=== PATIENT | female | born 1955 | race Caucasian/White ===

== ENCOUNTER 2020-10-20 14:12 | Outpatient (REF) | payer MEDICARE, SELFPAY | END 2020-10-20 14:13 | disposition home or self-care (01) | LOC: HO.HMGCLDS 14:12 | PROVIDERS: PCP Internal Medicine; Visit Provider Internal Medicine | DX: Z20.828 Contact with and (suspected) exposure to other viral communicable diseases (principal) | CPT/HCPCS: C9803; U0003 ==

== ENCOUNTER 2020-12-03 09:58 | Outpatient (REF) | payer MEDICARE, SELFPAY ==
[2020-12-03 11:32] LABS: Estimated Average Glucose 123 mg/dL; Hemoglobin A1c % 5.9 %
[2020-12-03 11:50] LABS: Alanine Aminotransferase 28 U/L (0-31); Anion Gap 16 (12-20); Aspartate Amino Transferase 18 U/L (5-31); Blood Urea Nitrogen 13 mg/dL (9-16); Calcium 9.3 mg/dL (8.4-10.2); Carbon Dioxide 25 mmol/L (22-29); Chloride 102 mmol/L (96-108); Cholesterol 200 mg/dL; Estimated Glomerular Filt Rate > 60; Glucose Fasting 127 mg/dL (60-99); HDL Cholesterol 39 mg/dL; LDL Cholesterol Calculated 110 mg/dl; Potassium 4.2 mmol/l (3.3-5.1); Sodium 139 mmol/L (135-145); Triglycerides 259 mg/dL
[2020-12-03 12:14] LABS: Vitamin D 25-OH Total 39.1 ng/mL (>30)
== END 2020-12-03 09:59 | disposition home or self-care (01) ==
LOC: HO.HMGCLDS 09:58
PROVIDERS: PCP Internal Medicine; Visit Provider Internal Medicine
DX: I10 Essential (primary) hypertension (principal); E78.5 Hyperlipidemia, unspecified; R73.01 Impaired fasting glucose; M85.80 Other specified disorders of bone density and structure, unspecified site
CPT/HCPCS: 36415; 80048; 80061; 82306; 83036; 84450; 84460

== ENCOUNTER 2020-12-10 07:26 | Day surgery (SDC) | payer MEDICARE, SELFPAY ==
--- NOTE | 2020-12-09 09:43 | HO.ANESPROP2 ---
Documented by User: Lou Zamoraney 12/09/20 09:44 HPI - Anesthesia Eval Consult details Narrative: 65yo F for Colonoscopy PMFSH Past Medical History Medical History Elevated cholesterol HTN (hypertension) Impaired fasting glucose Major depression in full remission Mixed dyslipidemia Osteopenia of left femoral neck Smoker unmotivated to quit Family History Family History Father Cancer of prostate Mother HTN (hypertension) Diabetes mellitus Myocardial infarction CAD (coronary artery disease) Brother No problems noted. Brother No problems noted. Sister ALS (amyotrophic lateral sclerosis) Surgical History Surgical History Hx of colonoscopy Social History Social History Alcohol intake: current Smoking Status: Current every day smoker Use of substances other than those prescribed or required for medical reasons: No Have you been hit, kicked, punched, or otherwise hurt by someone within the past year? If so, by whom?: No Advance Directives: No Advance Directives Information Provided: Yes Recently lost weight without trying: No Meds Allergies Allergy/AdvReac Type Severity Reaction Status Date / Time No Known Allergies Allergy Verified 12/08/20 12:48 Home Medications Medication Instructions Recorded Confirmed Type flu vacc [id number](65yr up)-PF 240 ml IM 12/08/20 12/08/20 History mcg/0.7 mL intramuscular syringe Exam Exam Date and Time: December 09, 2020 0943 Pertinent Lab Results Pertinent Lab Results: Laboratory Tests 12/03/20 10:06 Sodium 139 Potassium 4.2 Chloride 102 Carbon Dioxide 25 BUN 13 Creatinine 0.80 Assessment and Plan Assessment Anesthesia Assessment: Chart Reviewed Documented by User: Miguel Gonsalez MD 12/10/20 08:17 PMFSH Past Medical History Medical History Elevated cholesterol HTN (hypertension) Impaired fasting glucose Major depression in full remission Mixed dyslipidemia Osteopenia of left femoral neck Smoker unmotivated to quit Family History Family History Father Cancer of prostate Mother HTN (hypertension) Diabetes mellitus Myocardial infarction CAD (coronary artery disease) Brother No problems noted. Brother No problems noted. Sister ALS (amyotrophic lateral sclerosis) Surgical History Surgical History Hx of colonoscopy Social History Social History Alcohol intake: current Smoking Status: Current every day smoker Use of substances other than those prescribed or required for medical reasons: No Have you been hit, kicked, punched, or otherwise hurt by someone within the past year? If so, by whom?: No Advance Directives: No Advance Directives Information Provided: Yes Recently lost weight without trying: No Meds Allergies Allergy/AdvReac Type Severity Reaction Status Date / Time No Known Allergies Allergy Verified 12/08/20 12:48 Home Medications Medication Instructions Recorded Confirmed Type flu vacc [id number](65yr up)-PF 240 ml IM 12/08/20 12/08/20 History mcg/0.7 mL intramuscular syringe Exam Airway Mallampati Class: III TM Dist: >3cm Neck ROM: Full Loose/Missing/Broken Teeth: Yes (Upper side rotten teeth, one each both sides) Heart: RRR Lungs: NL, hoarse voice Assessment and Plan Assessment Anesthesia Assessment: Anesthesia Plan Discussed and Chart Reviewed Final Anesthetic Review NPO: Yes ASA Class: III Final Preanesthetic Review: No Changes in Pt Med Stat and Consent Obtained/Reviewed Patient Risk: Intermediate Procedure Risk: Low Anesthetic Plan Anesthetic Plan: MAC: Disposition: Standard PACU
[2020-12-10 07:49] VITALS: BP 175/84; PULSE 99; RESP 18; TEMP 36.1; O2SAT 97
[2020-12-10 07:55] VITALS: BMI 29.0
[2020-12-10] MEDS: Sodium Phosphate,Mono-Dibasic 133 ML ENEMA PR (08:01)
[2020-12-10] MEDS: Lactated Ringers 1,000 ML 100 ML IVCONT (08:01)
--- NOTE | 2020-12-10 08:10 | PC.NURSE ---
liquid yellow after fleets
[2020-12-10 09:18] VITALS: BP 91/46; PULSE 72; RESP 16; TEMP 36.1; O2SAT 97
--- NOTE | 2020-12-10 09:21 | PM.OP ---
Brief Operative Note Date of Service: 12/10/20 Pre-op diagnosis: Screening, History of colon polyps Post-op diagnosis: other (Colon polyps, Diverticulosis) Procedure: Colonoscopy to cecum and TI with snare polypectomy(TC polyp), and biopsy and removal of polyps Surgeon: Alin Maier Anesthesia: MAC Estimated blood loss (mL): 3.0 Pathology: other (A. Ascending colon polyps B. Transverse colon polyps) Condition: stable Disposition: PACU
[2020-12-10 09:33] VITALS: BP 101/49; PULSE 62; RESP 17; TEMP 36.8; O2SAT 98
--- NOTE | 2020-12-10 10:09 | OP_ITS ---
SURGEON: Alin Maier MD INDICATIONS: The patient presents for evaluation of personal history of tubular adenoma of the colon and colorectal cancer screening. Full consent has been obtained from her for this, including risks of bleeding and perforation. PREOPERATIVE DIAGNOSIS: POSTOPERATIVE DIAGNOSIS: PROCEDURE PERFORMED: Colonoscopy to cecum and terminal ileum with snare polypectomy, and biopsy and removal of polyps. ESTIMATED BLOOD LOSS: COMPLICATIONS: ANESTHESIA: Monitored anesthesia care. ASSISTANTS: SPECIMENS: PREOPERATIVE DIAGNOSES: Colorectal cancer screening and personal history of tubular adenoma of the colon. POSTOPERATIVE DIAGNOSES: Colorectal cancer screening and personal history of tubular adenoma of the colon, colon polyps, diverticulosis, and internal hemorrhoids. DESCRIPTION OF PROCEDURE: The patient was placed in the left lateral decubitus position. The digital rectal exam revealed no abnormalities. The Olympus video pediatric colonoscope was entered into the rectum and advanced easily to the cecum. Once in the cecum, I did identify normal-appearing cecal pouch with appendiceal orifice and a normal-appearing ileocecal valve. The terminal ileum was cannulated and appeared normal. The scope was withdrawn back in the colon. The entire cecum and ileocecal valve appeared normal. The scope was then slowly withdrawn assessing all mucosal surfaces carefully. Preparation was excellent. In the ascending colon were 3, approximately 4 or 5 mm polyps, which were all biopsied and completely removed with cold biopsy forceps. In the transverse colon, was a relatively flat, approximately 10 mm polyp, which was snared and recovered by suction. The polypectomy site appeared clean, without any sign of residual polyp nor bleeding. Also, in the transverse colon, were 2 flat approximately 4 mm polyps, which were biopsied and completely removed with cold biopsy forceps. I did not visualize any other polyps, colitis, or angiodysplasia. There was a moderate amount of sigmoid diverticulosis. In the rectum, scope was retroflexed visualizing internal hemorrhoids, but no other pathology. The rectal mucosa appeared normal. The scope was straightened out and withdrawn from the patient. She tolerated the procedure well and was returned to the recovery area in stable condition. IMPRESSION: 1. Colon polyps, status post snare polypectomy, and biopsy removal. 2. Diverticulosis. 3. Internal hemorrhoids. PLAN: The results of the pathology will be checked. I would recommend a repeat colonoscopy in 3 years for further screening and surveillance. She was advised not to use any aspirin and NSAIDs for 1 week. MD MELINDA Velazquez/JOVON / [id number]
--- NOTE | 2020-12-10 10:41 | HO.POSTANES ---
Post Anesthesia Evaluation Post Anesthesia Evaluation Vital Signs: Vital Signs Temp Pulse Resp BP Pulse Ox 12/10/20 09:33 98.2 F 62 17 101/49 L 98 12/10/20 09:18 97.0 F 72 16 91/46 L 97 12/10/20 07:49 97 F 99 18 175/84 H 97 Anesthesia: General (tiva) Mental Status: Awake Pain Control: Satisfactory Nausea/Vomiting: None Hydration: Adequate Anesthesia-Related Issues: No Anes. Related Issues
== END 2020-12-10 10:05 | disposition home or self-care (01) ==
PROVIDERS: PCP Internal Medicine; Visit Provider Internal Medicine
PROC: 0DJD8ZZ Inspection of Lower Intestinal Tract, Via Natural or Artificial Opening Endoscopic (ICD-10-PCS; CPT 45378; principal; 2020-12-10 08:40)
DX: Z12.11 Encounter for screening for malignant neoplasm of colon (principal); Z86.010 Personal history of colon polyps; D12.2 Benign neoplasm of ascending colon; D12.3 Benign neoplasm of transverse colon; K57.30 Diverticulosis of large intestine without perforation or abscess without bleeding; K64.8 Other hemorrhoids; M85.852 Other specified disorders of bone density and structure, left thigh; I10 Essential (primary) hypertension; R73.01 Impaired fasting glucose; F32.5 Major depressive disorder, single episode, in full remission; Z79.899 Other long term (current) drug therapy; F17.210 Nicotine dependence, cigarettes, uncomplicated
CPT/HCPCS: 45385; 45380; 88305

== ENCOUNTER 2021-03-13 09:58 | Outpatient (REF) | payer MEDICARE, SELFPAY ==
[2021-03-13 12:11] LABS: Alanine Aminotransferase 26 U/L (0-31); Anion Gap 15 (12-20); Aspartate Amino Transferase 20 U/L (5-31); Blood Urea Nitrogen 20 mg/dL (9-16); Calcium 9.6 mg/dL (8.4-10.2); Carbon Dioxide 27 mmol/L (22-29); Chloride 103 mmol/L (96-108); Cholesterol 207 mg/dL; Estimated Glomerular Filt Rate > 60; Glucose Fasting 117 mg/dL (60-99); HDL Cholesterol 49 mg/dL; LDL Cholesterol Calculated 106 mg/dl; Sodium 141 mmol/L (135-145); Triglycerides 261 mg/dL
== END 2021-03-13 09:59 | disposition home or self-care (01) ==
LOC: HO.HMGCLDS 09:58
PROVIDERS: PCP Internal Medicine; Visit Provider Internal Medicine
DX: E78.2 Mixed hyperlipidemia (principal); I10 Essential (primary) hypertension; M85.852 Other specified disorders of bone density and structure, left thigh; R73.01 Impaired fasting glucose; Z78.0 Asymptomatic menopausal state
CPT/HCPCS: 36415; 80048; 80061; 82306; 84450; 84460

== ENCOUNTER 2021-09-18 11:12 | Outpatient (REF) | payer MEDICARE, SELFPAY ==
[2021-09-18 14:22] LABS: Alanine Aminotransferase 32 U/L (0-31); Anion Gap 15 (12-20); Aspartate Amino Transferase 22 U/L (5-31); Blood Urea Nitrogen 11 mg/dL (9-16); Calcium 9.4 mg/dL (8.4-10.2); Carbon Dioxide 24 mmol/L (22-29); Chloride 105 mmol/L (96-108); Cholesterol 200 mg/dL; Estimated Glomerular Filt Rate > 60; Glucose Fasting 112 mg/dL (60-99); HDL Cholesterol 40 mg/dL; LDL Cholesterol Calculated 99 mg/dl; Potassium 4.3 mmol/L (3.3-5.1); Sodium 140 mmol/L (135-145); Triglycerides 309 mg/dL
[2021-09-18 14:27] LABS: Estimated Average Glucose 128 mg/dL; Hemoglobin A1c % 6.1 %
== END 2021-09-18 11:13 | disposition home or self-care (01) ==
LOC: HO.HMGCLDS 11:12
PROVIDERS: PCP Internal Medicine; Visit Provider Internal Medicine
DX: E78.2 Mixed hyperlipidemia (principal); I10 Essential (primary) hypertension; R73.01 Impaired fasting glucose
CPT/HCPCS: 36415; 80048; 80061; 83036; 84450; 84460

== ENCOUNTER 2022-01-20 13:45 | Outpatient (REF) | payer MEDICARE, SELFPAY ==
--- NOTE | ~2022-01-20 | XR_ITS ---
EXAMINATION: XR HIP, LEFT CLINICAL INFORMATION: Fall with left hip pain COMPARISON: None TECHNIQUE: Single view pelvis with 2 views of the left hip. FINDINGS: Mild degenerative changes are present in both hips with some superior joint space narrowing, left greater than right. Sepsis acetabular sclerosis is seen. No fractures are detected. XR/XR hip LT w PEL1V IMPRESSION: Mild degenerative changes both hips. No fractures.
--- NOTE | ~2022-01-20 | CT_ITS ---
EXAMINATION: CT CHEST SCREENING CLINICAL INFORMATION: Current smoker. [id number] history. COMPARISON: Previous chest CT most recent July 2020. TECHNIQUE: Multidetector volumetric CT imaging of the chest is performed without contrast using low dose technique. Additional 2D coronal and sagittal reformatted images and axial 3D maximum intensity projection (MIP) images are generated on the CT workstation. This CT examination was performed using dose optimization techniques as appropriate, variously including the following: *Automated exposure control *Adjustment of mA and/or kV according to patient size (this includes techniques or standardized protocols for targeted exams where dose is matched to indication/reason for exam; i.e. extremities or head) *Use of iterative reconstruction technique DLP: 49 mGy-cm FINDINGS: LUNGS: There is mild paraseptal emphysema. There is a new 6 mm ground-glass attenuation left lower lobe nodule axial image 315 series 5. Pulmonary nodules are otherwise stable. Largest pulmonary nodule is a 5 mm ground-glass attenuation right upper lobe nodule axial image 76 series 5. No endobronchial or endotracheal lesion is seen. MEDIASTINUM: The heart does not appear enlarged. There is mild coronary artery calcification. There is a replaced right subclavian artery. There are no enlarged hilar or mediastinal lymph nodes. There is no pericardial effusion. PLEURA: There is no pleural effusion. No pleural mass or thickening. AXILLA: No lymphadenopathy. UPPER ABDOMEN: The liver is low in attenuation suggestive of fatty infiltration. OSSEOUS STRUCTURES: Unremarkable. CT/CT lung screening IMPRESSION: Emphysema. New 6 mm ground-glass attenuation left lower lobe nodule. Pulmonary nodules are otherwise stable. ASSESSMENT: Lung-RADS category 3: Probably Benign. RECOMMENDATION: Six-month low-dose chest CT followup recommended.
== END 2022-01-20 13:46 | disposition home or self-care (01) ==
LOC: HO.CT 13:45
PROVIDERS: Absent Provider Physician Assistant; PCP Internal Medicine; Visit Provider Physician Assistant Medical
DX: Z12.2 Encounter for screening for malignant neoplasm of respiratory organs (principal); F17.210 Nicotine dependence, cigarettes, uncomplicated; W19.XXXA Unspecified fall, initial encounter
CPT/HCPCS: 71271; 73502

== ENCOUNTER 2022-02-18 09:50 | Outpatient (REF) | payer MEDICARE, SELFPAY ==
[2022-02-18 12:13] LABS: Creatinine Urine 491.21 mg/dL; Microalbum/Creatinine Ratio Ur 11.6 ug/mg cr
[2022-02-18 12:30] LABS: Alanine Aminotransferase 23 U/L (0-31); Anion Gap 14 (12-20); Aspartate Amino Transferase 20 U/L (5-31); Blood Urea Nitrogen 21 mg/dL (9-16); Calcium 9.6 mg/dL (8.4-10.2); Carbon Dioxide 27 mmol/L (22-29); Chloride 104 mmol/L (96-108); Cholesterol 193 mg/dL; Estimated Glomerular Filt Rate > 60; Glucose Fasting 128 mg/dL (60-99); HDL Cholesterol 48 mg/dL; LDL Cholesterol Calculated 97 mg/dl; Potassium 3.8 mmol/L (3.3-5.1); Sodium 141 mmol/L (135-145); Triglycerides 242 mg/dL
[2022-02-18 12:32] LABS: Estimated Average Glucose 134 mg/dL; Hemoglobin A1c % 6.3 %
== END 2022-02-18 09:51 | disposition home or self-care (01) ==
LOC: HO.HMGCLDS 09:50
PROVIDERS: PCP Internal Medicine; Visit Provider Internal Medicine
DX: E78.2 Mixed hyperlipidemia (principal); I10 Essential (primary) hypertension; M85.852 Other specified disorders of bone density and structure, left thigh; R73.01 Impaired fasting glucose; Z78.0 Asymptomatic menopausal state
CPT/HCPCS: 36415; 80048; 80061; 82043; 82306; 83036; 84450; 84460

== ENCOUNTER 2022-04-09 13:00 | Outpatient (RCR) | payer MEDICARE, SELFPAY ==
[2022-02-19 13:03] VITALS: BP 158/90
--- NOTE | 2022-02-19 14:48 | MHC.PT.EP ---
[facility] [place] Office [place] Office [place] Office [address] Zack Mao [address] [phone] F: [phone] F: [phone] F: [phone] F: [phone] Physical Therapy Plan of Care Date of Evaluation: Date of Surgery: Diagnosis: fall L hip pain. Assessment: Patient is a 66-year-old female referred to PT for L hip/ thigh pain s/p fall in her home who presents with L hip and knee dysfunction resulting in decreased tolerance for performing sit to stand transfers, rolling in bed on L hip, negotiating stairs reciprocally, standing and walking secondary to decreased L > R hip strength, decreased L knee strength, TTP of L ant thigh and lateral L hip, gait abnormality, increased LE tissue tension and pain. Pt is deemed an appropriate candidate to receive skilled PT in order to address her physical limitations to improve her functional ability. Frequency and Duration: The patient will be seen 2 x / wk x 4 wks. Short Term Goals: Initiate HEP improve baseline pain from 5/10 to < 3/10 with activity. [employer] Goals: I with HEP. Negotiates 1fl of stairs with reciprocal fashion w/o compensation. Pt will be able to walk 2 blocks with no difficulty; initial: quite a bit of difficulty. Improve L knee extension MMT to > 4+/5; initial 4/5. Treatment Plan: Modalities to reduce pain, spasms and effusion. Manual therapy to restore motion and function. Therapeutic exercise to improve strength and flexibility. Neuromuscular re-education for posture and balance. Therapeutic activities to return to functional activities of daily living. Electronically signed by: Krzysztof Bass PT Please sign and return to therapist. Thank you for your referral.
--- NOTE | 2022-04-09 13:36 | MHC.PT.DC ---
[facility] [place] Office [place] Office [place] Office [address] [phone] F: [phone] F: [phone] F: [phone] F: [phone] Physical Therapy Discharge Report Diagnosis: fall L hip pain. Date of Surgery: Date of Evaluation: 02/19/22 Date of Discharge: 04/09/22 Treatments to Date: 10 Cancellations to Date: No Shows to Date: Discharge Status: Achieved Goals Improved Function Independent with HEP Discharge Summary: Sarah has been an active participant in her therapy in and out of the clinic; she has met her therapeutic goals, is I with her home program and is in agreement with DC at this time. SPADI outcome measure significantly improved from to . Electronically signed by: Krzysztof Bass PT. Please sign and return to therapist. Thank you for your referral.
== END 2022-04-09 13:37 | disposition home or self-care (01) ==
LOC: HO.PTCHIC 13:00
PROVIDERS: PCP Internal Medicine; Visit Provider Internal Medicine
DX: M25.552 Pain in left hip (principal); W19.XXXD Unspecified fall, subsequent encounter
CPT/HCPCS: 97110; 97140; 97161

== ENCOUNTER 2022-08-24 15:05 | Outpatient (REF) | payer MEDICARE, SELFPAY ==
--- NOTE | ~2022-08-24 | CT_ITS ---
EXAMINATION: CT CHEST SCREENING CLINICAL INFORMATION: Current smoker. 50 pack year history. COMPARISON: Previous chest CT most recent January 2022 TECHNIQUE: Multidetector volumetric CT imaging of the chest is performed without contrast using low dose technique. Additional 2D coronal and sagittal reformatted images and axial 3D maximum intensity projection (MIP) images are generated on the CT workstation. This CT examination was performed using dose optimization techniques as appropriate, variously including the following: *Automated exposure control *Adjustment of mA and/or kV according to patient size (this includes techniques or standardized protocols for targeted exams where dose is matched to indication/reason for exam; i.e. extremities or head) *Use of iterative reconstruction technique DLP: 46 mGy-cm FINDINGS: LUNGS: There is evidence of emphysema. Pulmonary nodules are stable. Largest right pulmonary nodule is 5 mm semisolid right upper lobe nodule axial 7 series 5. Largest left pulmonary nodule is a 6 mm groundglass attenuation left lower lobe nodule axial image 301 series 5. No new pulmonary nodule. No endobronchial or endotracheal lesion MEDIASTINUM: There is a replaced right subclavian artery. There is mild atherosclerotic disease. Mediastinum is otherwise normal. CORONARY ARTERY CALCIFICATION: Mild PLEURA: There is no pleural effusion. No pleural mass or thickening. AXILLA: No lymphadenopathy. UPPER ABDOMEN: The liver is low in attenuation suggestive of fatty infiltration. OSSEOUS STRUCTURES: Unremarkable. CT/CT lung screen follow up IMPRESSION: Stable pulmonary nodules from most recent exam January 2022. Emphysema. ASSESSMENT: Lung-RADS category 2: Benign RECOMMENDATION: Annual low-dose chest CT follow-up recommended.
== END 2022-08-24 15:06 | disposition home or self-care (01) ==
LOC: HO.CT 15:05
PROVIDERS: PCP Internal Medicine; Visit Provider Physician Assistant Medical
DX: Z12.2 Encounter for screening for malignant neoplasm of respiratory organs (principal); Z87.891 Personal history of nicotine dependence
CPT/HCPCS: 71250

== ENCOUNTER → 2022-09-03 13:41 | Outpatient (BNVA) | payer MEDICARE, SELFPAY | PROVIDERS: PCP Internal Medicine; Visit Provider Surgery | DX: R91.8 Other nonspecific abnormal finding of lung field (principal); F17.210 Nicotine dependence, cigarettes, uncomplicated; Z71.6 Tobacco abuse counseling | CPT/HCPCS: 99202 ==

== ENCOUNTER 2022-10-02 10:08 | Outpatient (REF) | payer MEDICARE, SELFPAY ==
--- NOTE | ~2022-10-02 | MM_ITS ---
EXAMINATION: MM SCREENING DIGITAL BREAST TOMOSYNTHESIS, BILATERAL CLINICAL INFORMATION: Screening. Asymptomatic. COMPARISON: Mammography: 08/04/2020, 12/06/2018, 03/16/2016, 03/03/2016 TECHNIQUE: Digital breast tomosynthesis is performed in both the craniocaudal and mediolateral oblique views along with computer-aided detection (CAD). Synthesized 2D images are generated from the tomosynthesis. FINDINGS: The breasts are heterogeneously dense, which may obscure small masses (ACR BI-RADS breast composition Category c). There is a nodular parenchymal pattern similar to prior studies. Incidental coarsening calcifications anterior outer right breast. There are no significant masses, abnormal calcifications, or other abnormalities. The axilla are unremarkable. The skin contours are smooth. No significant changes. MM/MM tomosynthesis screening BI IMPRESSION: No significant changes from prior exams. ASSESSMENT: BI-RADS 2: Benign RECOMMENDATION: Routine annual mammography screening. This patient's information was entered into a reminder system with a target due date for their next mammogram.
== END 2022-10-02 10:09 | disposition home or self-care (01) ==
LOC: HO.MAMMO 10:08
PROVIDERS: Visit Provider Internal Medicine
DX: Z12.31 Encounter for screening mammogram for malignant neoplasm of breast (principal)
CPT/HCPCS: 77063; 77067

== ENCOUNTER 2022-11-29 12:29 | Outpatient (AMB) | payer MEDICARE, SELFPAY ==
--- NOTE | 2022-11-29 12:47 | MHC.PC.OV ---
Vital Signs 11/29/22 12:49 11/29/22 13:36 Height 5 ft 4 in Weight 169 lb BMI 29.0 BP 160/72 H 145/60 H Blood Pressure Location Rt brachial Rt brachial Position Sitting Sitting Pulse 75 Pulse Source Pulse Oximeter Pulse Oximetry (%) 96 Oxygen Delivery Method Room Air Comment did not take lisinopril, ran out of medicine Intake Visit Reasons: Annual PE Intake Note: Pt is here today for her Physcial Exam Allergies No Known Allergies Allergy (Verified 06/19/24 12:51) Medication List - Last Reconciled 11/29/22 by Roxy Clark MD flu vacc [id number](65yr up)-PF mL IM fluoxetine 20 mg PO DAILY hydrochlorothiazide 25 mg PO DAILY lisinopril 10 mg PO DAILY simvastatin 40 mg PO BEDTIME trazodone 50 mg PO BEDTIME PRN Tobacco use date assessed: 11/29/22 Fall risk assessment: 1 Fall in past year Last assessed Fall Risk: 11/29/22 HPI Annual PE HPI Details 68-year-old lady here today for physical exam. She has hypertension, currently on hydrochlorothiazide 25 mg daily and lisinopril 10 mg daily, blood pressure today was mildly elevated. She has hyperlipidemia current taking simvastatin 40 mg at bedtime Up-to-date with her breast cancer screening, last mammogram done 09/2022. Up-to-date with her screening colonoscopy done [place] [address] Maier, with removal of 2 tubular adenoma polyps, repeat colonoscopy due again in 2024 Continues to smoke cigarettes, with no desire to quit at present time. Participates in the lung cancer screening program at [facility] Complains of a mass on her right lower cheek, which seems to be increasing in size. Denies any pain over site, no problems with chewing or swallowing. FORMERLY [facility], [facility] Medical History (Updated 06/19/24 @ 13:03 by Roxy Clark MD) Warthin's tumor Tubular adenoma of colon (~2009) Personal history of nicotine dependence Hip pain Impaired fasting glucose Major depression in full remission Osteopenia of left femoral neck (~2007) Mixed dyslipidemia HTN (hypertension) Surgical History History of left breast biopsy History of colonoscopy Family History Father Cancer of prostate Mother HTN (hypertension) Diabetes mellitus Myocardial infarction CAD (coronary artery disease) Brother No problems noted. Brother No problems noted. Sister ALS (amyotrophic lateral sclerosis) Other Mental health disorder Social History Housing: Apartment Alcohol intake: current Patient Tobacco Use Status: Current everyday Tobacco user Cigarettes Per Day: 10 Years Smoked: 50 years e-Cigarette/Vaping Use: Never Used Current occupational status: retired Cognitive needs: No Hearing needs: No Vision needs: Yes Questionnaire PHQ-9 Over the last 2 weeks, how often have you been bothered by any of the following problems? 1. Little interest or pleasure in doing things: not at all 2. Feeling down, depressed, or hopeless: not at all 3. Trouble falling or staying asleep, or sleeping too much: more than half the days 4. Feeling tired or having little energy: several days 5. Poor appetite or overeating: several days 6. Feeling bad about yourself - or that you are a failure or have let yourself or your family down: not at all 7. Trouble concentrating on things, such as reading the newspaper or watching television: not at all 8. Moving or speaking so slowly that other people could have noticed. Or the opposite - being so fidgety or restless that you have been moving around a lot more than usual: not at all 9. Thoughts that you would be better off or of hurting yourself in some way: not at all Total score: 4 Depression Screening Interpretation: Negative 12439 - PHQ-9 Billing: Yes Source: Developed by Drs. Alin Arellano, Yuko Matos, Live Carrion and colleagues, with an educational felicia from [employer]. Thrive Questionnaire Date Thrive assessed: 11/29/22 I am a: Patient What is your living situation today?: I have a steady place to live Within the past 12 months, did the food you bought not last and you didn't have the money to get more?: Never true Within the past 12 months, did you worry whether your food would run out before you got money to buy more?: Never true Do you have trouble paying for medicines?: No Do you have trouble getting transportation to medical appointments?: No Do you have trouble paying your heating and electricity bill?: No Do you have trouble taking care of your child, family member or friend?: No Do you have trouble with day-to-day activities such as bathing, preparing meals, shopping, managing finances, etc.?: No Are you currently unemployed and looking for a job?: No Are you interested in more education?: No AUDIT C Alcohol Use Questionnaire (AUDIT-C) 1. How often do you have a drink containing alcohol?: 4 or more times a week 2. How many drinks containing alcohol do you have on a typical day when you are drinking?: 3 or 4 3. How often do you have six or more drinks on one occasion?: Less than monthly Total Score: 6 BRITTANI-7 AMB Questionnaire BRITTANI-7 Date BRITTANI - 7 assessed: 11/29/22 Feeling nervous, anxious, or on edge: 0 = Not at all Not being able to stop or control worryin = Not at all Worrying too much about different things: 0 = Not at all Trouble relaxin = Not at all Being so restless that it is hard to sit still: 0 = Not at all Becoming easily annoyed or irritable: 0 = Not at all Feeling afraid as if something awful might happen: 0 = Not at all Total BRITTANI-7 score (0-4 normal; 5-9 mild; 10-14 moderate; 15-21 severe): 0 Source: Developed by Drs. Alin Arellano, Yuko Matos, Live Carrion and colleagues, with an educational felicia from [employer]. BRITTANI-7 Assessment Billing BRITTANI-7 Assessment Tool: BRITTANI-7 Assessment 35409 Review of Systems Const Denies chills, Denies difficulty sleeping, Denies fever(s) and Denies malaise Eyes Reports blurry vision ENT Reports no additional complaints Card Denies chest pain, Denies dyspnea and Denies dyspnea on exertion Resp Denies cough, Denies dyspnea and Denies dyspnea on exertion GI Denies hematochezia and Denies change in bowel habits Denies hematuria Musc Denies back pain and Denies limited range of motion Skin/Breast Denies breast pain, Denies breast mass and Denies rash Neuro Denies focal weakness and Denies convulsions Psych Denies depression and Denies mood swings Endo Reports no additional complaints Garth/Lymph Denies easy bleeding and Denies easy bruising Aller/Immun Reports no additional complaints Physical exam (Primary Care) Vital Signs: Last Vital Signs Pulse 75 11/29/22 12:49 BP 145/60 H 11/29/22 13:36 Pulse Ox 96 11/29/22 12:49 Oxygen Delivery Method Room Air 11/29/22 12:49 BMI result Body Mass Index 29.0 Tobacco/Smoking Status: Tobacco use Status Tobacco use date assessed 11/29/22 11/29/22 12:54 Patient Tobacco Use Status Current everyday Tobacco 11/29/22 12:54 e-Cigarette/Vaping Use Never Used 11/29/22 12:54 Are you ready to quit: No PHQ-9: PHQ-9 Score PHQ-9: Total score 4 11/29/22 13:42 Depression Screening Interpretation: Negative Thrive Assessment: Date of Thrive Assessment Date Thrive assessed 11/29/22 11/29/22 12:59 Const Other: Alert oriented x3, no acute distress noted, ambulatory with normal gait Orientation/consciousness: patient oriented x3 HENMT Other: Irregularly shaped mass on right lower cheek, nontender to palpation, no erythema overlying said area Mouth: Normal oral and palatal mucosa present and moist mucous membranes Eyes General: appearance normal, both eyes and all related structures Neck Other: bilateral submandibular lymphadenopathy, nontender , supple Neck: Yes full ROM Thyroid: Thyroid normal Resp Auscultation: clear to auscultation bilaterally Cardio Other: S1 And S2 present regular rate and rhythm GI Palpation (GI): Soft to palpation, nontender, no guarding and no masses Auscultation: normal bowel sounds General: Yes no CVA tenderness Back/Spine/Pelvis Back: no CVA tenderness and No back tenderness Skin General skin exam: no rashes or lesions noted Neuro General: patient oriented x3, gait normal, tone normal, moves all extremities, Normal light touch and pain sensation, no focal motor deficits and CN's II-XI intact bilaterally Extrem General: Yes full ROM, Yes no joint enlargement, Yes no pedal edema, Yes no calf tenderness and Yes normal gait Psych Appearance: grossly normal and well kempt Mental Status: mental status grossly normal Speech and movement: Normal speech and movement present Affect: normal affect Attitude: cooperative Thought process: Normal thought process present Thought content: Normal thought content present Immunizations pneumoc 20-anusha conj-dip cr(PF) 0.5 mL IM syringe Performing Provider: Roxy Clark MD Performing Location: [facility] Administered by: Snehal Corrigan CMA on 11/29/22 13:41 Dose Route Admin Location Dispensed Lot Number Expiration Date [employer] 0.5 mL IM Left Deltoid 0.5 mL [id number] 11/29/22 [employer] VIS Given Date VIS Provided VIS Publication Date 11/29/22 Single Vaccine 21 Eligibility Eligibility Date Funding Source Not [facility] Eligible 11/29/22 Private Assessment and Plan Assessment & Plan (1) Annual visit for general adult medical examination with abnormal findings: Code(s): Z00.01 - Encounter for general adult medical examination with abnormal findings Plan: Will check appropriate labs. Continued regular dental visit every 6 months and regular eye exams, at least every 2 years. Take adequate calcium in diet and vitamin-D 3 at 2000 IU per cap once a day, in addition to weight-bearing exercises to help maintain good muscle tone and weight control. Instructed to do self-breast exam, and continue with yearly mammogram. Ordered a bone density scan to check for osteoporosis. She is up-to-date with her colon cancer screening, She is up-to-date with all her vaccinations including RSV, shingles, pneumonia vaccine (2) Localized swelling, mass or lump of neck: Code(s): R22.1 - Localized swelling, mass and lump, neck Plan: Ordered ultrasound of soft tissue head and neck (3) Osteopenia of left femoral neck: Onset Date: ~2007 Comment: (Bone Dexa Femur T-Score: -1.1 on 02/02/08 & -1.3 on 12/06/18) Code(s): M85.852 - Other specified disorders of bone density and structure, left thigh Plan: Will repeat another bone density scan, in the meantime continue regular weight-bearing exercise, take adequate calcium from dietary sources and take vitamin-D 3 supplements at least 2000 units daily. (4) Personal history of nicotine dependence: Comment: (current smoker, 50pyh - 1ppd, in LDCT screening program) Code(s): Z87.891 - Personal history of nicotine dependence Plan: Patient strongly advised to stop smoking, as smoking damages blood vessels, degenerative of joints and spine, damage to lungs and heart., predisposes to developing certain cancers like lung, breast, bladder, colon. Recommended to try decreasing cigarette use by 1-2 cigarettes a day. Advised to monitor what triggers are for smoking so that this can be discussed on the next office visit. We can discuss different options to quit smoking when ready. She is currently getting annual low-dose CT cancer screening. (5) Impaired fasting glucose: Code(s): R73.01 - Impaired fasting glucose Plan: Fasting blood sugar ordered, Your previous fasting blood sugars were elevated above 100 mg/dL. Impaired glucose metabolism increases the risk for developing diabetes mellitus type 2, as well as heart attack and stroke later on. Lifestyle changes that promotes weight loss, healthy eating habits, and regular exercise are important, and can prevent the progression to diabetes (6) Mixed dyslipidemia: Code(s): E78.2 - Mixed hyperlipidemia Plan: Continue with simvastatin 40 mg at night, in addition to adhering to healthy eating habits and getting regular exercise. (7) HTN (hypertension): Code(s): I10 - Essential (primary) hypertension Qualifiers: Hypertension type: essential hypertension Qualified Code(s): I10 - Essential (primary) hypertension Plan: Systolic blood pressure mildly elevated on today's visit. Patient currently asymptomatic. Continue with hydrochlorothiazide and lisinopril, dose increased to 10 mg daily (8) Multiple pulmonary nodules: Code(s): R91.8 - Other nonspecific abnormal finding of lung field Plan: Has been evaluated by Dr. Barnes in the past, who recommended getting yearly low-dose CT scan for lung cancer screening. Currently up-to-date Orders: Orders Complete Blood Count Auto Diff 11/29/22 R91.8 - Other nonspecific abnormal finding of lung field, R22.1 - Localized swelling, mass and lump, neck US soft tiss head and/or neck 11/29/22 R22.1 - Localized swelling, mass and lump, neck XR DEXA axial skeleton 11/29/22 M85.852 - Other specified disorders of bone density and structure, left thigh Pneumococcal 20 Immunization 11/29/22 Z23 - Encounter for immunization Medications: Refilled hydrochlorothiazide 25 mg PO DAILY 90 tabs 3RF fluoxetine 20 mg PO DAILY 90 caps 2RF lisinopril 10 mg PO DAILY 90 tabs 2RF I10 - Essential (primary) hypertension simvastatin 40 mg PO BEDTIME 90 tabs 1RF trazodone 50 mg PO BEDTIME PRN 30 tabs 0RF sleep Coding Level of Care Code Est Pt Prev Care >65y(77750) Diagnoses Annual visit for general adult medical examination with abnormal findings Z00.01 Localized swelling, mass or lump of neck R22.1 Osteopenia of left femoral neck M85.852 Personal history of nicotine dependence Z87.891 Impaired fasting glucose R73.01 Mixed dyslipidemia E78.2 Essential hypertension I10 Hypertension type: essential hypertension Multiple pulmonary nodules R91.8 Additional Codes BRITTANI-7 Assessment Billing - BRITTANI-7 Assessment Tool: BRITTANI-7 Assessment 21439 ([id number])
[2022-11-29 12:49] VITALS: BP 160/72; PULSE 75; O2SAT 96; BMI 29.0
[2022-11-29 13:36] VITALS: BP 145/60
== END 2022-11-29 13:46 | disposition home or self-care (01) ==
LOC: HO.HMGC 12:29
PROVIDERS: PCP Internal Medicine; Visit Provider Internal Medicine
DX: Z00.01 Encounter for general adult medical examination with abnormal findings (principal); R22.1 Localized swelling, mass and lump, neck; M85.852 Other specified disorders of bone density and structure, left thigh; Z87.891 Personal history of nicotine dependence; R73.01 Impaired fasting glucose; E78.2 Mixed hyperlipidemia; I10 Essential (primary) hypertension; R91.8 Other nonspecific abnormal finding of lung field
CPT/HCPCS: 99499

== ENCOUNTER 2023-06-21 10:07 | Outpatient (REF) | payer MEDICARE, SELFPAY ==
[2023-06-21 13:33] LABS: MANUAL DIFF FLAG NO
[2023-06-21 13:46] LABS: Basophils Absolute Auto 0.1 X10*3/uL (0.0-0.2); Basophils Percent Auto 0.5 % (0-2); Eosinophils Absolute Auto 0.2 X10*3/uL (0.0-0.4); Eosinophils Percent Auto 2.5 % (0-4); Hematocrit 44.7 % (37.0-47.0); Hemoglobin 14.3 g/dl (12.0-16.0); Imm Gran Abs Auto 0.03 X10*3/uL (0.00-0.03); Imm Gran Pct Auto 0.3 % (0.0-0.4); Lymphocytes Absolute Auto 3.4 X10*3/uL (1.2-4.9); Lymphocytes Percent Auto 36.7 % (20-40); Mean Corpuscular Hemoglobin 29.6 pg (27.0-33.0); Mean Corpuscular Volume 92.5 fL (80.0-98.0); Mean Platelet Volume 10.7 fL (9.4-12.3); Monocytes Absolute Auto 0.7 X10*3/uL (0.1-1.2); Monocytes Percent Auto 7.7 % (2-11); Neutrophils Absolute Auto 4.9 x10*3/uL (2.0-8.3); Neutrophils Percent Auto 52.3 % (45-73); Platelet Count 310 X10*3/uL (160-400); Red Blood Count 4.83 X10*6/uL (4.20-5.50); Red Cell Distribution Width 13.8 % (11.0-16.0); White Blood Count 9.4 X10*3/uL (4.8-10.8)
[2023-06-21 13:55] LABS: Estimated Average Glucose 123 mg/dL; Hemoglobin A1c % 5.9 %
[2023-06-21 14:15] LABS: Alanine Aminotransferase 30 U/L (0-31); Anion Gap 15 (12-20); Aspartate Amino Transferase 22 U/L (5-31); Blood Urea Nitrogen 19 mg/dL (9-16); Calcium 9.2 mg/dL (8.4-10.2); Carbon Dioxide 21 mmol/L (22-29); Chloride 108 mmol/L (96-108); Cholesterol 227 mg/dL; Estimated Glomerular Filt Rate > 60; Glucose Fasting 111 mg/dL (60-99); HDL Cholesterol 42 mg/dL; LDL Cholesterol Calculated 126 mg/dl; Potassium 4.3 mmol/L (3.3-5.1); Sodium 140 mmol/L (135-145); Triglycerides 299 mg/dL
[2023-06-21 14:32] LABS: Vitamin D 25-OH Total 80.2 ng/mL (>30)
== END 2023-06-21 10:08 | disposition home or self-care (01) ==
LOC: HO.HMGCLDS 10:07
PROVIDERS: PCP Internal Medicine; Visit Provider Internal Medicine
DX: R91.8 Other nonspecific abnormal finding of lung field (principal); R22.1 Localized swelling, mass and lump, neck; I10 Essential (primary) hypertension; E78.2 Mixed hyperlipidemia; M85.852 Other specified disorders of bone density and structure, left thigh; N95.9 Unspecified menopausal and perimenopausal disorder; R73.01 Impaired fasting glucose
CPT/HCPCS: 36415; 80048; 80061; 82306; 83036; 84450; 84460; 85025

== ENCOUNTER 2023-06-23 12:52 | Outpatient (AMB) | payer MEDICARE, SELFPAY ==
--- NOTE | 2023-06-23 13:09 | MHC.PC.OV ---
Vital Signs 06/23/23 13:10 Height 5 ft 4 in Weight 166 lb BMI 28.5 BP 134/64 Blood Pressure Location Rt brachial Position Sitting Pulse 75 Pulse Source Pulse Oximeter Pulse Oximetry (%) 96 Oxygen Delivery Method Room Air Intake Visit Reasons: 6 Month Follow up Intake Note: Pt is here today for her 6mo. f/u Allergies No Known Allergies Allergy (Verified 06/23/23 13:32) Medication List - Last Reconciled 06/23/23 by Roxy Clark MD fluoxetine 20 mg PO DAILY hydrochlorothiazide 25 mg PO DAILY lisinopril 10 mg PO DAILY simvastatin 40 mg PO BEDTIME trazodone 50 mg PO BEDTIME PRN Tobacco use date assessed: 06/23/23 Fall risk assessment: No Falls in past year Last assessed Fall Risk: 06/23/23 Dental Screening Dental Screen Date: 06/23/23 Did you have a dental visit in the last 12 months?: Yes Did you have a dental problem in the last 6 months where you did not have access to dental care?: No Was dental information given to patient?: Patient has dentist HPI 6 Month Follow up HPI Details 67-year-old lady here today for follow-up. 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 Parks Had recent fasting labs done which showed normal hemoglobin A1c, but LDL cholesterol and triglycerides are higher than last check diet but still within normal limits. Has been eating a lot of pastries and ice-cream lately per patient. Ultrasound of soft tissue neck was already ordered last November 2022 but patient canceled appointment, would like to get it done now here . Denies any difficulty swallowing, no pain over said area She continues to smoke cigarettes, but has no desire to quit at present time, gets yearly low-dose CT scan of the lung done for screening, due again in August 2023. [facility] Medical History Hip pain HTN (hypertension) Impaired fasting glucose Localized swelling, mass or lump of neck Major depression in full remission Mixed dyslipidemia Osteopenia of left femoral neck (~2007) Personal history of nicotine dependence Tubular adenoma of colon (~2009) Surgical History History of colonoscopy History of left breast biopsy Family History Father Cancer of prostate Mother HTN (hypertension) Diabetes mellitus Myocardial infarction CAD (coronary artery disease) Brother No problems noted. Brother No problems noted. Sister ALS (amyotrophic lateral sclerosis) Other Mental health disorder Social History Housing: Apartment Alcohol intake: current Patient Tobacco Use Status: Current everyday Tobacco user Cigarettes Per Day: 10 Years Smoked: 50 years e-Cigarette/Vaping Use: Never Used Current occupational status: retired Cognitive needs: No Hearing needs: No Vision needs: Yes Questionnaire PHQ-9 Over the last 2 weeks, how often have you been bothered by any of the following problems? Depression Screening Interpretation: Negative Source: Developed by Drs. Alin Arellano, Yuko Matos, Live Carrion and colleagues, with an educational felicia from [employer]. Thrive Questionnaire Date Thrive assessed: 11/29/22 BRITTANI-7 AMB Questionnaire BRITTANI-7 Date BRITTANI - 7 assessed: 11/29/22 Source: Developed by Drs. Alin Arellano, Yuko Matos, Live Carrion and colleagues, with an educational felicia from [employer]. Review of Systems Const Denies body aches, Denies fatigue, Denies fever(s), Denies headache(s) and Denies weakness Eyes Denies change in vision and Denies itchy eyes ENT Denies dizziness, Denies headache(s) and Denies nasal congestion Card Denies chest pain, Denies lightheadedness, Denies palpitations, Denies dyspnea and Reports dyspnea on exertion (Climbing stairs) Resp Denies chest congestion, Denies cough, Denies dyspnea, Reports dyspnea on exertion (Climbing stairs) and Denies wheezing GI Denies abdominal pain, Denies change in bowel habits and Denies heartburn Denies urinary frequency, Denies dysuria and Denies urinary urgency Skin/Breast Denies lesions and Denies rash Neuro Denies dizziness, Denies headache(s) and Denies weakness Psych Reports as per HPI Endo Denies fatigue, Denies polydipsia, Denies polyuria and Denies palpitations Garth/Lymph Denies easy bruising Aller/Immun Denies itchy eyes, Denies seasonal rhinorrhea and Denies wheezing Physical exam (Primary Care) Vital Signs: Last Vital Signs Pulse 75 06/23/23 13:10 BP 134/64 06/23/23 13:10 Pulse Ox 96 06/23/23 13:10 Oxygen Delivery Method Room Air 06/23/23 13:10 BMI result Body Mass Index 28.5 Tobacco/Smoking Status: Tobacco use Status Tobacco use date assessed 06/23/23 06/23/23 13:11 Patient Tobacco Use Status Current everyday Tobacco 06/23/23 13:11 e-Cigarette/Vaping Use Never Used 06/23/23 13:11 Are you ready to quit: No Depression Screening Interpretation: Negative Thrive Assessment: Date of Thrive Assessment Date Thrive assessed 11/29/22 06/23/23 13:11 Const Other: Alert oriented x3, no acute distress noted, ambulatory with normal gait Orientation/consciousness: patient oriented x3 HENMT Mouth: Normal oral and palatal mucosa present and moist mucous membranes Eyes General: appearance normal, both eyes and all related structures Neck Other: Supple no lymphadenopathy, thyroid gland nonpalpable , firm nontender mass on submandibular area, not warm to touch Chest Breast/axilla palpation: normal palpation of the breasts Resp Auscultation: clear to auscultation bilaterally Cardio Other: S1 And S2 present regular rate and rhythm GI Palpation (GI): Soft to palpation, nontender, no guarding and no masses Auscultation: normal bowel sounds Back/Spine/Pelvis Back: No back tenderness Skin General skin exam: no rashes or lesions noted Neuro General: patient oriented x3, gait normal, tone normal, moves all extremities, Normal light touch and pain sensation, no focal motor deficits and CN's II-XI intact bilaterally Extrem General: Yes full ROM, Yes no joint enlargement, Yes no pedal edema, Yes no calf tenderness and Yes normal gait Psych Appearance: grossly normal and well kempt Mental Status: mental status grossly normal Speech and movement: Normal speech and movement present Affect: normal affect Attitude: cooperative Thought process: Normal thought process present Thought content: Normal thought content present Results Reviewed Results Reviewed: ENTERED: 06/21/23-1017 OTHR HOUSER: ORDERED: Met Prof Fast, AST, ALT, Lipid Panel, Vitamin D 25-OH Test Result Flag Reference Site Sodium 140 135-145 mmol/L Potassium 4.3 3.3-5.1 mmol/L CL 108 96-108 mmol/L CO2 21 L 22-29 mmol/L Gap 15 12-20 BUN 19 H 9-16 mg/dL Creat 0.73 0.5-1.4 mg/dL EGFR > 60 NOTE: For -Malaysian individuals, multiply the result by 1.210. Chronic Kidney Disease: Estimated GFR < 60 mL/min/1.73m2 Severe Kidney Disease: Estimated GFR < 15 mL/min/1.73m2 FBS 111 H 60-99 mg/dL A fasting glucose from 100-125 mg/dl is considered impaired (pre-diabetes). CA 9.2 8.4-10.2 mg/dL AST (GOT) 22 5-31 U/L ALT (GPT) 30 0-31 U/L Triglyceride 299 mg/dL Desirable Triglyceride: less than 150 mg/dL Borderline High Triglyceride 150-199 mg/dL High Triglyceride: 200-499 mg/dL Very High Triglyceride: greater than or equal to 5OO mg/dL Chol 227 mg/dL Desirable Cholesterol: less than 200 mg/dL Borderline High Cholesterol: 200-239 mg/dL High Cholesterol: greater than 239 mg/dL LDL Calculated 126 mg/dl Desirable LDL: less than 100 mg/dL Near Optimal/Above Optimal LDL: 110-129 mg/dL Borderline High LDL: 130-159 mg/dL High LDL: 160-189 mg/dL Very High LDL: greater than or equal to 190 mg/dL HDL 42 mg/dL Desirable HDL: greater than 40 mg/dL Note: This HDL assay may give artificially low results in patients with liver disease. Vit D 25-OH Tot 80.2 >30 ng/mL Health Based Reference Values* < 20 ng/mL Deficient 20-30 ng/mL Insufficient > 30 ng/mL Sufficient Assessment and Plan Assessment & Plan (1) Localized swelling, mass or lump of neck: Code(s): R22.1 - Localized swelling, mass and lump, neck Plan: Patient advised to get ultrasound of soft tissue neck done, ordered already placed last November 2022. Will refer to surgery for further evaluation management (2) Mixed dyslipidemia: Code(s): E78.2 - Mixed hyperlipidemia Plan: Reviewed recent fasting labs with patient which showed higher LDL cholesterol triglycerides as compared to last check, but still within normal limits. Continue simvastatin 40 mg at bedtime, will repeat another fasting lipid panel in 3 months (3) Impaired fasting glucose: Code(s): R73.01 - Impaired fasting glucose Plan: Your fasting blood sugars elevated above 100 mg/dL. Impaired glucose metabolism O2 at risk for developing diabetes mellitus type 2, as well as heart attack and stroke later on. Lifestyle changes at just weight loss, healthy eating habits, and regular exercise are important, and can prevent the progression to diabetes (4) Osteopenia of left femoral neck: Onset Date: ~2007 Comment: (Bone Dexa Femur T-Score: -1.1 on 02/02/08 & -1.3 on 12/06/18) Code(s): M85.852 - Other specified disorders of bone density and structure, left thigh Plan: Continue with vitamin-D 3 supplements, take adequate calcium in dietary sources, continue doing regular weight-bearing exercise. Has an order already ease in place for a repeat bone density scan, patient reminded to get it scheduled (5) Multiple pulmonary nodules: Code(s): R91.8 - Other nonspecific abnormal finding of lung field Plan: Gets yearly low-dose CT scans of the lung due again August 2023 (6) HTN (hypertension): Code(s): I10 - Essential (primary) hypertension Qualifiers: Hypertension type: essential hypertension Qualified Code(s): I10 - Essential (primary) hypertension Plan: Blood pressure at goal of less than 130/80. Continue with lisinopril 10 mg daily and hydrochlorothiazide 25 mg daily. Reinforced importance of following a low sodium diet, getting regular exercise, and lowering stress levels. (7) Major depression in full remission: Code(s): F32.5 - Major depressive disorder, single episode, in full remission Plan: Stable and controlled on fluoxetine 20 mg daily (8) Smoker unmotivated to quit: Code(s): F17.200 - Nicotine dependence, unspecified, uncomplicated Plan: Patient strongly advised to stop smoking, as smoking damages blood vessels, degenerative of joints and spine, damage to lungs and heart., predisposes to developing certain cancers like lung, breast, bladder, colon. Recommended to try decreasing cigarette use by 1-2 cigarettes a day. Advised to monitor what triggers are for smoking so that this can be discussed on the next office visit. We can discuss different options to quit smoking when ready. Orders: Orders Glucose Fasting Today E78.2 - Mixed hyperlipidemia, R73.01 - Impaired fasting glucose Hemoglobin A1c Today E78.2 - Mixed hyperlipidemia, R73.01 - Impaired fasting glucose Lipid Panel 3 Months E78.2 - Mixed hyperlipidemia, R73.01 - Impaired fasting glucose Referrals General Surgery Referral R22.1 - Localized swelling, mass and lump, neck Coding Level of Care Code Est Pt Level 4 (74079) Diagnoses Localized swelling, mass or lump of neck R22.1 Mixed dyslipidemia E78.2 Impaired fasting glucose R73.01 Osteopenia of left femoral neck M85.852 Multiple pulmonary nodules R91.8 HTN (hypertension) I10 Hypertension type: essential hypertension Major depression in full remission F32.5 Smoker unmotivated to quit F17.200
[2023-06-23 13:10] VITALS: BP 134/64; PULSE 75; O2SAT 96; BMI 28.5
== END 2023-06-23 14:16 | disposition home or self-care (01) ==
PROVIDERS: Visit Provider Internal Medicine
DX: R22.1 Localized swelling, mass and lump, neck (principal); E78.2 Mixed hyperlipidemia; R73.01 Impaired fasting glucose; M85.852 Other specified disorders of bone density and structure, left thigh; R91.8 Other nonspecific abnormal finding of lung field; I10 Essential (primary) hypertension; F32.5 Major depressive disorder, single episode, in full remission; F17.200 Nicotine dependence, unspecified, uncomplicated
CPT/HCPCS: 99214

== ENCOUNTER 2023-07-19 15:18 | Outpatient (REF) | payer MEDICARE, SELFPAY ==
--- NOTE | ~2023-07-19 | US_ITS ---
EXAMINATION: US SOFT TISSUE HEAD/NECK CLINICAL INFORMATION: Localized swelling, mass and lump, neck. COMPARISON: US-guided right neck parotid biopsy 01/17/2017. CT soft tissue neck with contrast 12/09/2016. Ultrasound soft tissue neck 12/01/2016. TECHNIQUE: Linear transducer landa-scale and color Doppler examination of the right and left neck zones II and III (below ear); tails of parotid glands. FINDINGS: There is a hypoechoic circumscribed solid right neck mass measuring 4.8 x 2.1 x 2.5 cm, previously 4.5 x 1.5 x 2.3 cm, in the right neck inferior to the ear. This demonstrates internal color Doppler flow. There is a slightly superior 1.1 x 0.7 x 1.1 cm lymph node. There is an echogenic center and vascular flow to the hilum. There is a slightly inferior 1.2 x 0.6 x 0.9 cm lymph node. There is echogenic center and vascular flow to the hilum. There is a hypoechoic circumscribed solid left neck mass measuring 3.1 x 1.9 x 1.9 cm, previously 2.3 x 1.3 x 1.3 cm in the left neck inferior to the ear. This demonstrates internal color Doppler flow. There is a second hypoechoic circumscribed solid left neck mass measuring 2.8 x 1.3 x 1.6 cm, previously 2.3 x 1.1 x 1.3 cm. This demonstrates internal color Doppler flow. US/US soft tiss head and/or neck IMPRESSION: Multiple bilateral well-defined masses in the regions of the tail of the parotid glands bilaterally, largest on the right. These masses have increased in size. These may be consistent with Warthin tumors. Further management and treatment decisions should be based on the clinical assessment. If clinically indicated further cross-sectional imaging could be performed.
== END 2023-07-19 15:19 | disposition home or self-care (01) ==
LOC: HO.HMGCX 15:18
PROVIDERS: PCP Internal Medicine; Visit Provider Internal Medicine
DX: R22.1 Localized swelling, mass and lump, neck (principal)
CPT/HCPCS: 76536

== ENCOUNTER 2023-10-12 10:10 | Outpatient (REF) | payer MEDICARE, SELFPAY ==
--- NOTE | ~2023-10-12 | CT_ITS ---
EXAMINATION: CT CHEST SCREENING CLINICAL INFORMATION: Current smoker with 40 pack year history COMPARISON: Previous CTs, most recent, 08/24/2022 TECHNIQUE: Multidetector volumetric CT imaging of the chest is performed without contrast using low dose technique. Additional 2D coronal and sagittal reformatted images and axial 3D maximum intensity projection (MIP) images are generated on the CT workstation. This CT examination was performed using dose optimization techniques as appropriate, variously including the following: *Automated exposure control *Adjustment of mA and/or kV according to patient size (this includes techniques or standardized protocols for targeted exams where dose is matched to indication/reason for exam; i.e. extremities or head) *Use of iterative reconstruction technique DLP: 48 mGy-cm FINDINGS: CAMP PROGRAM DIRECTOR: Aortic calcifications. LUNGS: Trachea and bronchi are patent. Centrilobular emphysema. Lingular atelectasis. Scattered blebs. No change 5 mm semisolid anterior RUL nodule, 6:72, sagittal 78/107. 6 mm groundglass nodule in the left lower lobe on previous study is no longer seen. MEDIASTINUM: Unremarkable thyroid. No pathologic lymphadenopathy. Nonenlarged heart. No pericardial effusion. Nonaneurysmal aorta with atherosclerotic calcifications. Right subclavian artery anatomy again demonstrated. Nonenlarged pulmonary arteries. CORONARY ARTERY CALCIFICATION: Mild. PLEURA: There is no pleural effusion. No pleural mass or thickening. AXILLA: No lymphadenopathy.. UPPER ABDOMEN: Diffuse hypodensity to the liver parenchyma. Left adrenal hypertrophy. OSSEOUS STRUCTURES: No osseous osseous lesions. CT/CT lung screening IMPRESSION: Stable 5 mm right upper lobe pulmonary nodule. ASSESSMENT: Lung-RADS category 2: Benign RECOMMENDATION: Routine annual low-dose CT screening in 12 months.
== END 2023-10-12 10:11 | disposition home or self-care (01) ==
LOC: HO.CT 10:10
PROVIDERS: PCP Internal Medicine; Visit Provider Physician Assistant Medical
DX: Z12.2 Encounter for screening for malignant neoplasm of respiratory organs (principal); F17.210 Nicotine dependence, cigarettes, uncomplicated
CPT/HCPCS: 71271

== ENCOUNTER 2023-10-12 11:56 | Outpatient (REF) | payer MEDICARE, SELFPAY ==
--- NOTE | ~2023-10-12 | MM_ITS ---
EXAMINATION: MM SCREENING DIGITAL BREAST TOMOSYNTHESIS, BILATERAL CLINICAL INFORMATION: Screening. Asymptomatic. COMPARISON: Mammography: This study is compared with prior exams dating back to 2019. TECHNIQUE: Digital breast tomosynthesis is performed in both the craniocaudal and mediolateral oblique views along with computer-aided detection (CAD). Synthesized 2D images are generated from the tomosynthesis. FINDINGS: There are scattered areas of fibroglandular density (ACR BI-RADS breast composition Category b). There are no significant masses, abnormal calcifications, or other abnormalities. There are a few, unchanged, bilateral benign calcifications. MM/MM tomosynthesis screening BI IMPRESSION: No mammographic evidence of malignancy. ASSESSMENT: BI-RADS BI-RADS 2 - Benign Findings RECOMMENDATION: Routine annual mammography screening. 1 year F/U This examination should not preclude the clinical evaluation of a suspicious palpable abnormality. This patient's information was entered into a reminder system with a target due date for their next mammogram.
== END 2023-10-12 11:57 | disposition home or self-care (01) ==
LOC: HO.MAMMO 11:56
PROVIDERS: PCP Internal Medicine; Visit Provider Internal Medicine
DX: Z12.31 Encounter for screening mammogram for malignant neoplasm of breast (principal)
CPT/HCPCS: 77063; 77067

== ENCOUNTER → 2023-10-12 12:15 | Outpatient (BNV) | payer MEDICARE, SELFPAY | PROVIDERS: PCP Internal Medicine; Visit Provider Radiology Diagnostic Radiology | DX: Z12.31 Encounter for screening mammogram for malignant neoplasm of breast (principal) | CPT/HCPCS: 77063; 77067 ==

== ENCOUNTER 2023-11-30 09:15 | Outpatient (REF) | payer MEDICARE, SELFPAY ==
[2023-11-30 11:54] LABS: Estimated Average Glucose 123 mg/dL; Hemoglobin A1c % 5.9 % (<6.0)
[2023-11-30 12:06] LABS: Cholesterol 188 mg/dL (<200); Glucose Fasting 112 mg/dL (60-99); HDL Cholesterol 48 mg/dL (>40); LDL Cholesterol Calculated 101 mg/dL (<100); Triglycerides 199 mg/dL (<150)
== END 2023-11-30 09:16 | disposition home or self-care (01) ==
LOC: HO.HMGCLDS 09:15
PROVIDERS: PCP Internal Medicine; Visit Provider Internal Medicine
DX: E78.2 Mixed hyperlipidemia (principal); R73.01 Impaired fasting glucose
CPT/HCPCS: 36415; 80061; 82947; 83036

== ENCOUNTER 2023-12-01 13:46 | Outpatient (AMB) | payer MEDICARE, SELFPAY ==
[2023-12-01 13:55] VITALS: BP 152/78; PULSE 63; O2SAT 97; BMI 28.4
--- NOTE | 2023-12-01 13:55 | A.OFFPC_ITS ---
Vital Signs 12/01/23 13:55 Height 5 ft 4 in Weight 165 lb 4 oz BMI 28.4 BP 152/78 H Blood Pressure Location Rt brachial Position Sitting Pulse 63 Pulse Source Pulse Oximeter Pulse Oximetry (%) 97 Oxygen Delivery Method Room Air Intake Visit Reasons: Annual PE Intake Note: Pt is here for her Annual PE Allergies No Known Allergies Allergy (Verified 12/01/23 14:17) Medication List - Last Reconciled 12/01/23 by Roxy Clark MD fluoxetine 20 mg PO DAILY hydrochlorothiazide 25 mg PO DAILY lisinopril 10 mg PO DAILY simvastatin 40 mg PO BEDTIME trazodone 50 mg PO BEDTIME PRN Tobacco use date assessed: 12/01/23 Fall risk assessment: No Falls in past year Last assessed Fall Risk: 12/01/23 Dental Screening Dental Screen Date: 12/01/23 Did you have a dental visit in the last 12 months?: Yes Did you have a dental problem in the last 6 months where you did not have access to dental care?: No Was dental information given to patient?: Patient has dentist HPI Annual PE HPI Details 68-year-old lady here today for physical exam. She has hypertension, currently stable controlled on lisinopril 10 mg daily and hydrochlorothiazide 25 mg daily. She takes simvastatin 40 mg at bedtime for hyperlipidemia, and is currently on fluoxetine and trazodone taken as needed for her depression which is stable controlled. She has been referred to general surgery for further treatment for Warthin's tumor, but had to cancel that appointment. She is up-to-date with her screening mammogram, and is due for a repeat bone density scan which is ordered on this visit. Has had 2 tubular adenomas removed on screening colonoscopy done by Dr. Alexander in the past due again for recheck this year. She is a long-term cigarette smoker, had had her Routine annual low-dose CT screening last year which came back with benign findings, repeat again in a year. Laboratory Tests 06/21/23 06/21/23 11/30/23 10:19 10:19 09:20 WBC 9.4 Hgb 14.3 Hct 44.7 RDW 13.8 Plt Count 310 Creatinine 0.73 Estimated GFR > 60 Fasting Glucose Estimat Average Gl ucose Hemoglobin A1c % AST 22 ALT 30 Triglycerides 199 H Cholesterol 188 LDL Cholesterol, C alc 101 H HDL Cholesterol 48 11/30/23 09:20 WBC Hgb Hct RDW Plt Count Creatinine Estimated GFR Fasting Glucose 112 H Estimat Average Gl ucose 123 Hemoglobin A1c % 5.9 AST ALT Triglycerides Cholesterol LDL Cholesterol, C alc HDL Cholesterol [facility] Medical History (Updated 12/01/23 @ 14:29 by Roxy Clark MD) Warthin's tumor Localized swelling, mass or lump of neck Tubular adenoma of colon (~2009) Personal history of nicotine dependence Hip pain Impaired fasting glucose Major depression in full remission Osteopenia of left femoral neck (~2007) Mixed dyslipidemia HTN (hypertension) Surgical History History of left breast biopsy History of colonoscopy Family History Father Cancer of prostate Mother HTN (hypertension) Diabetes mellitus Myocardial infarction CAD (coronary artery disease) Brother No problems noted. Brother No problems noted. Sister ALS (amyotrophic lateral sclerosis) Other Mental health disorder Social History Housing: Apartment Alcohol intake: current Patient Tobacco Use Status: Current everyday Tobacco user Cigarettes Per Day: 10 Years Smoked: 50 years e-Cigarette/Vaping Use: Never Used Current occupational status: retired Cognitive needs: No Hearing needs: No Vision needs: Yes Questionnaire PHQ-9 Over the last 2 weeks, how often have you been bothered by any of the following problems? 1. Little interest or pleasure in doing things: not at all 2. Feeling down, depressed, or hopeless: not at all 3. Trouble falling or staying asleep, or sleeping too much: several days 4. Feeling tired or having little energy: several days 5. Poor appetite or overeating: not at all 6. Feeling bad about yourself - or that you are a failure or have let yourself or your family down: not at all 7. Trouble concentrating on things, such as reading the newspaper or watching television: not at all 8. Moving or speaking so slowly that other people could have noticed. Or the opposite - being so fidgety or restless that you have been moving around a lot more than usual: not at all 9. Thoughts that you would be better off or of hurting yourself in some way: not at all Total score: 2 Depression Screening Interpretation: Negative Depression Screening Done: Yes 63751 - PHQ-9 Billing: Yes Source: Developed by Drs. Alin Arellano, Yuko Matos, Live Carrion and colleagues, with an educational felicia from [employer]. Thrive Questionnaire Date Thrive assessed: 12/01/23 I am a: Patient What is your living situation today?: I have a steady place to live Within the past 12 months, did the food you bought not last and you didn't have the money to get more?: Never true Within the past 12 months, did you worry whether your food would run out before you got money to buy more?: Never true Do you have trouble paying for medicines?: No Do you have trouble getting transportation to medical appointments?: No Do you have trouble paying your heating and electricity bill?: No Do you have trouble taking care of your child, family member or friend?: No Do you have trouble with day-to-day activities such as bathing, preparing meals, shopping, managing finances, etc.?: No Are you currently unemployed and looking for a job?: No Are you interested in more education?: No AUDIT C Alcohol Use Questionnaire (AUDIT-C) 1. How often do you have a drink containing alcohol?: 4 or more times a week 2. How many drinks containing alcohol do you have on a typical day when you are drinking?: 1 or 2 3. How often do you have six or more drinks on one occasion?: Less than monthly Total Score: 5 BRITTANI-7 AMB Questionnaire BRITTANI-7 Date BRITTANI - 7 assessed: 12/01/23 Feeling nervous, anxious, or on edge: 1 = Several days Not being able to stop or control worryin = Several days Worrying too much about different things: 1 = Several days Trouble relaxin = Not at all Being so restless that it is hard to sit still: 0 = Not at all Becoming easily annoyed or irritable: 0 = Not at all Feeling afraid as if something awful might happen: 0 = Not at all Total BRITTANI-7 score (0-4 normal; 5-9 mild; 10-14 moderate; 15-21 severe): 3 Source: Developed by Drs. Alin Arellano, Yuko Matos, Live Carrion and colleagues, with an educational felicia from [employer]. BRITTANI-7 Assessment Billing BRITTANI-7 Assessment Tool: BRITTANI-7 Assessment [id number] Review of Systems Const Denies body aches, Denies fatigue, Denies fever(s), Denies headache(s) and Denies weakness Eyes Denies change in vision ENT Denies change in voice, Denies dysphagia, Denies dizziness, Denies headache(s), Denies nasal congestion, Denies disequilibrium and Denies post nasal drip Card Denies chest pain, Denies lightheadedness, Denies palpitations, Denies dyspnea and Reports dyspnea on exertion (Climbing stairs) Resp Denies chest congestion, Denies cough, Denies dyspnea, Reports dyspnea on exertion (Climbing stairs) and Denies wheezing GI Denies abdominal pain, Denies change in bowel habits, Denies dysphagia and Denies heartburn Denies urinary frequency, Denies dysuria and Denies urinary urgency Musc Reports no additional complaints Skin/Breast Denies lesions and Denies rash Neuro Denies dizziness, Denies headache(s), Denies disequilibrium and Denies weakness Psych Reports as per HPI Endo Denies fatigue, Denies polydipsia, Denies polyuria and Denies palpitations Garth/Lymph Denies easy bruising Aller/Immun Denies seasonal rhinorrhea and Denies wheezing Physical exam (Primary Care) Vital Signs: Last Vital Signs Pulse 63 12/01/23 13:55 BP 152/78 H 12/01/23 13:55 Pulse Ox 97 12/01/23 13:55 Oxygen Delivery Method Room Air 12/01/23 13:55 BMI result Body Mass Index 28.4 Tobacco/Smoking Status: Tobacco use Status Tobacco use date assessed 12/01/23 12/01/23 13:59 Patient Tobacco Use Status Current everyday Tobacco 12/01/23 13:59 e-Cigarette/Vaping Use Never Used 12/01/23 13:59 Are you ready to quit: No PHQ-9: PHQ-9 Score PHQ-9: Total score 2 12/13/23 23:40 Depression Screening Interpretation: Negative Thrive Assessment: Date of Thrive Assessment Date Thrive assessed 12/01/23 12/01/23 14:17 Const Other: Alert oriented x3, no acute distress noted, ambulatory with normal gait Orientation/consciousness: patient oriented x3 [facility] Mouth: Normal oral and palatal mucosa present and moist mucous membranes Eyes General: appearance normal, both eyes and all related structures Neck Other: Supple no lymphadenopathy, thyroid gland nonpalpable , firm nontender mass on submandibular area, not warm to touch Chest Breast/axilla palpation: normal palpation of the breasts Resp Auscultation: clear to auscultation bilaterally Cardio Other: S1 And S2 present regular rate and rhythm GI Palpation (GI): Soft to palpation, nontender, no guarding and no masses Auscultation: normal bowel sounds Back/Spine/Pelvis Back: No back tenderness Skin General skin exam: no rashes or lesions noted Neuro General: patient oriented x3, gait normal, tone normal, moves all extremities, Normal light touch and pain sensation, no focal motor deficits and CN's II-XI intact bilaterally Extrem General: Yes full ROM, Yes no joint enlargement, Yes no pedal edema, Yes no calf tenderness and Yes normal gait Psych Appearance: grossly normal and well kempt Mental Status: mental status grossly normal Speech and movement: Normal speech and movement present Affect: normal affect Attitude: cooperative Thought process: Normal thought process present Thought content: Normal thought content present Assessment and Plan Assessment & Plan (1) Annual visit for general adult medical examination with abnormal findings: Code(s): Z00.01 - Encounter for general adult medical examination with abnormal findings Plan: Reviewed recent fasting lab results with patient. Date with screening mammogram, ordered a bone density scan to be done, reminded patient that she is due for repeat colonoscopy this year with Dr. Maier, patient states she will call and make an appointment. Up-to-date with her COVID vaccine nation, flu shot and pneumonia vaccination, reminded to get her 2nd dose of shingles vaccine. (2) Osteopenia of left femoral neck: Onset Date: ~2007 Comment: (Bone Dexa Femur T-Score: -1.1 on 02/02/08 & -1.3 on 12/06/18) Code(s): M85.852 - Other specified disorders of bone density and structure, left thigh Plan: Repeat bone density scan ordered, advised to do regular weight-bearing exercise at least 3 to 4 times a week, continue taking adequate calcium from dietary sources, start taking [id number] vitamin D3 at 2000 units daily (3) Localized swelling, mass or lump of neck: Code(s): R22.1 - Localized swelling, mass and lump, neck Plan: Referred back to general surgery for further evaluation and treat (4) Major depression in full remission: Code(s): F32.5 - Major depressive disorder, single episode, in full remission Plan: Continued on fluoxetine and trazodone (5) Warthin's tumor: Code(s): 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 Monitor blood pressure at home, and called persistently above 1 40/90. Continued on current dose of hydrochlorothiazide and lisinopril, Blood pressure goal is less than 130/80. Reinforced importance of following a low sodium diet, getting regular exercise, smoking cessation, and lowering stress levels. (7) Mixed dyslipidemia: Code(s): E78.2 - Mixed hyperlipidemia Plan: Reviewed recent fasting lipid profile with patient with mildly elevated triglycerides but LDL cholesterol at 101 mg/dL. . Continue with simvastatin 40 mg at bedtime , in addition to adherence to low-cholesterol diet and regular exercise, at least 30 minutes 3 to 4 times a week. Advised patient to make healthy food choices, eat more fruits, vegetables, whole grains, wild caught fish and low-fat dairy. Limit amount of meat and fried or fatty food products, as well as processed foods and fast foods. Follow-up scheduled with repeat fasting lipid panel in 6 months. (8) Impaired fasting glucose: Code(s): R73.01 - Impaired fasting glucose Plan: Your fasting blood sugars elevated above 100 mg/dL. But hemoglobin A1c is within normal limits. Impaired glucose metabolism O2 at risk for developing diabetes mellitus type 2, as well as heart attack and stroke later on. Lifestyle changes at just weight loss, healthy eating habits, and regular exercise are important, and can prevent the progression to diabetes (9) Personal history of nicotine dependence: Comment: (current smoker, 50pyh - 1ppd, in LDCT screening program) Code(s): Z87.891 - Personal history of nicotine dependence Plan: Patient strongly advised to stop smoking, as smoking damages blood vessels, degenerative of joints and spine, damage to lungs and heart., predisposes to developing certain cancers like lung, breast, bladder, colon. Recommended to try decreasing cigarette use by 1-2 cigarettes a day. Advised to monitor what triggers are for smoking so that this can be discussed on the next office visit. We can discuss different options to quit smoking when ready. Recent low-dose CT scan for lung screening came back with benign finding, to be repeated again this year Orders: Orders Vitamin D 25-OH Total 07/01/24 F32.5 - Major depressive disorder, single episode, in full remission, I10 - Essential (primary) hypertension, E78.2 - Mixed hyperlipidemia, R73.01 - Impaired fasting glucose, M85.852 - Other specified disorders of bone density and structure, left thigh, Z87.891 - Personal history of nicotine dependence Hemoglobin A1c 07/01/24 F32.5 - Major depressive disorder, single episode, in full remission, I10 - Essential (primary) hypertension, E78.2 - Mixed hyperlipidemia, R73.01 - Impaired fasting glucose, M85.852 - Other specified disorders of bone density and structure, left thigh, Z87.891 - Personal history of nicotine dependence XR DEXA axial skeleton 12/01/23 M85.852 - Other specified disorders of bone density and structure, left thigh Comprehensive Goodell. Panel Fast 07/01/24 F32.5 - Major depressive disorder, single episode, in full remission, I10 - Essential (primary) hypertension, E78.2 - Mixed hyperlipidemia, R73.01 - Impaired fasting glucose, M85.852 - Other specified disorders of bone density and structure, left thigh, Z87.891 - Personal history of nicotine dependence Lipid Panel 07/01/24 F32.5 - Major depressive disorder, single episode, in full remission, I10 - Essential (primary) hypertension, E78.2 - Mixed hyperlipidemia, R73.01 - Impaired fasting glucose, M85.852 - Other specified disorders of bone density and structure, left thigh, Z87.891 - Personal history of nicotine dependence Referrals General Surgery Referral R22.1 - Localized swelling, mass and lump, neck, D11.9 - Benign neoplasm of major salivary gland, unspecified Coding Level of Care Code Est Pt Prev Care >65y(11652) Diagnoses Annual visit for general adult medical examination with abnormal findings Z00.01 Osteopenia of left femoral neck M85.852 Localized swelling, mass or lump of neck R22.1 Major depression in full remission F32.5 Warthin's tumor D11.9 Essential hypertension I10 Hypertension type: essential hypertension Mixed dyslipidemia E78.2 Impaired fasting glucose R73.01 Personal history of nicotine dependence Z87.891 Additional Codes BRITTANI-7 Assessment Billing - BRITTANI-7 Assessment Tool: BRITTANI-7 Assessment [id number] ([id number])
== END 2023-12-01 14:30 | disposition home or self-care (01) ==
PROVIDERS: Visit Provider Internal Medicine
DX: Z00.01 Encounter for general adult medical examination with abnormal findings (principal); M85.852 Other specified disorders of bone density and structure, left thigh; R22.1 Localized swelling, mass and lump, neck; F32.5 Major depressive disorder, single episode, in full remission; D11.9 Benign neoplasm of major salivary gland, unspecified; I10 Essential (primary) hypertension; E78.2 Mixed hyperlipidemia; R73.01 Impaired fasting glucose; Z87.891 Personal history of nicotine dependence
CPT/HCPCS: 99397

== ENCOUNTER 2024-01-26 14:43 | Outpatient (AMB) | payer MEDICARE, SELFPAY ==
[2024-01-26 14:45] VITALS: BP 152/71; PULSE 94; BMI 28.4
--- NOTE | 2024-01-26 14:45 | MHC.OFFVIS ---
Intake Vital Signs 01/26/24 14:45 Height 5 ft 4 in Weight 165 lb 3.995 oz BMI 28.4 BP 152/71 H Blood Pressure Location Rt brachial Position Sitting Pulse 94 Intake Visit Reasons: mass and lump, neck Intake Note: This patient was referred by for mass and lump on neck assessment. Pt c/o; reports lump right side of neck and left elbow. 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 She points to a mass on the right neck at the submandibular area. She says she has had this for about 7 years. She says that this has not increased in size for about 4 years now. She denies any pain or tenderness. She denies any discomfort. She denies any skin changes She has a similar mass on the left neck also in the same location. This mass on the left neck is smaller. She denies any oral lesions. She has a long history of heavy smoking and still currently smokes. [facility] Medical History Warthin's tumor Localized swelling, mass or lump of neck Tubular adenoma of colon (~2009) Personal history of nicotine dependence Hip pain Impaired fasting glucose Major depression in full remission Osteopenia of left femoral neck (~2007) Mixed dyslipidemia HTN (hypertension) Surgical History History of left breast biopsy History of colonoscopy Family History Father Cancer of prostate Mother HTN (hypertension) Diabetes mellitus Myocardial infarction CAD (coronary artery disease) Brother No problems noted. Brother No problems noted. Sister ALS (amyotrophic lateral sclerosis) Other Mental health disorder Social History Housing: Apartment Alcohol intake: current Patient Tobacco Use Status: Current everyday Tobacco user Cigarettes Per Day: 10 Years Smoked: 50 years e-Cigarette/Vaping Use: Never Used Current occupational status: retired Cognitive needs: No Hearing needs: No Vision needs: Yes Review of Systems Const Denies chills and Denies fever(s) Card Denies chest pain, Denies dyspnea and Denies dyspnea on exertion Resp Denies cough, Denies dyspnea and Denies dyspnea on exertion GI Denies hematochezia and Denies change in bowel habits Denies hematuria Musc Details: Chronic right hip pain Reports abnormal gait, Reports back pain, Reports arthralgias and Denies limited range of motion Neuro Reports abnormal gait, Denies focal weakness and Denies convulsions Psych Denies depression and Denies mood swings Physical Exam Vital Signs: Last Vital Signs Pulse 94 01/26/24 14:45 BP 152/71 H 01/26/24 14:45 Const General: comfortable and no acute distress Orientation/consciousness: patient oriented x3 Neck Other: Right neck at the submandibular area is note of a mass, soft, well-defined and seems mobile, about 5 cm in diameter Left neck at the submandibular area is note of a similar mass, soft, well-defined, mobile, about 3 cm in diameter Neck: Yes no lymphadenopathy Resp Auscultation: clear to auscultation bilaterally Cardio Rhythm: regular rhythm GI Palpation (GI): Soft to palpation, nontender and no guarding Neuro General: patient oriented x3 Assessment & Plan Assessment & Plan (1) Warthin's tumor: Code(s): D11.9 - Benign neoplasm of major salivary gland, unspecified Plan: She had an ultrasound last year these neck masses and findings are suggestive of a Warthin's tumor from the parotid gland. I am going to order for a CAT scan to define this masses. I am going to review the CT scan and I explained to her that we may have to send her to a head and neck surgeon down the line She seems to understand the plan well. Orders: Orders Blood Urea Nitrogen Today D11.9 - Benign neoplasm of major salivary gland, unspecified Creatinine Today D11.9 - Benign neoplasm of major salivary gland, unspecified CT soft tissue neck w IV con Today D11.9 - Benign neoplasm of major salivary gland, unspecified Coding Level of Care Code New Pt Level 3 (62633) Diagnoses Warthin's tumor D11.9
== END 2024-01-26 15:08 | disposition home or self-care (01) ==
PROVIDERS: PCP Internal Medicine; Referring Provider Internal Medicine; Visit Provider Surgery
DX: D11.9 Benign neoplasm of major salivary gland, unspecified (principal)
CPT/HCPCS: 99203

== ENCOUNTER → 2024-01-26 14:43 | Outpatient (BNVA) | payer MEDICARE, SELFPAY | PROVIDERS: PCP Internal Medicine; Referring Provider Internal Medicine; Visit Provider Surgery | DX: D11.9 Benign neoplasm of major salivary gland, unspecified (principal) | CPT/HCPCS: 99202 ==

== ENCOUNTER 2024-03-14 13:29 | Outpatient (REF) | payer MEDICARE, SELFPAY ==
[2024-03-14 16:18] LABS: Blood Urea Nitrogen 18 mg/dL (9-16); Estimated Glomerular Filt Rate > 60
== END 2024-03-14 13:30 | disposition home or self-care (01) ==
LOC: HO.HMGCLDS 13:29
PROVIDERS: PCP Internal Medicine; Visit Provider Surgery
DX: D11.9 Benign neoplasm of major salivary gland, unspecified (principal)
CPT/HCPCS: 36415; 82565; 84520

== ENCOUNTER 2024-03-22 10:47 | Outpatient (REF) | payer MEDICARE, SELFPAY ==
--- NOTE | ~2024-03-22 | CT_ITS ---
EXAMINATION: CT SOFT TISSUE NECK WITH CONTRAST CLINICAL INFORMATION: Warthin's tumors COMPARISON: CT neck 12/09/[address] 10/12/2023 TECHNIQUE: Following the administration of 60 mL of Omnipaque 300 intravenous contrast, helical imaging was performed in the axial plane with generation of coronal and sagittal reformatted images. This CT examination was performed using dose optimization techniques as appropriate, variously including the following: *Automated exposure control. *Adjustment of mA and/or kV according to patient size (this includes techniques or standardized protocols for targeted exams where dose is matched to indication/reason for exam; i.e. extremities or head). *Use of iterative reconstruction technique. DLP: 390 mGy-cm. FINDINGS: Redemonstrated multiple relatively homogeneous appearing soft tissue masses within the bilateral parotid glands, increased in size since prior examination. Dominant masses in the superficial left parotid gland measure 1.7 x 1.2 cm anteriorly (previously 1.3 x 1.0 cm), and 2.5 x 1.8 cm posteriorly (previously 1.7 x 1.2 cm). A dominant mass in the right parotid tail and extending inferiorly into the right lateral neck demonstrates largely homogeneous enhancement with a small area of focal hypoenhancement, measuring 3.2 x 2.1 x 4.4 cm, previously 2.4 x 1.5 x 3.1 cm. This corresponds to the location of an overlying marker. There is associated mass effect along the subjacent right sternocleidomastoid and ventral displacement of the right external jugular vein along its anterior margin. Increased size of additional masses along the deep aspect of the superficial right parotid lobe measuring 2.1 x 1.3 cm (previously obscured by dental artifact but measuring approximately 1.6 x 1.0 cm) and within the outer portion of the superficial right parotid lobe measuring 1.3 x 1.2 cm, previously not well visualized however possibly measuring 4 mm. There is no deep lobe involvement. The fat planes of the skull base and soft tissues of the nasopharynx are unremarkable. Slight leftward nasal septal deviation with a leftward bony spur. Patchy paranasal sinus mucosal thickening with several left maxillary sinus retention cysts. No mastoid effusion. The temporomandibular joints are normal. Torus palatini. Interval extraction of the left maxillary second premolar and molar teeth. The oral cavity is unremarkable, apart from partially herniated sublingual glands into the submandibular spaces via mylohyoid boutonniere defects. Punctate calcified bilateral palatine tonsilloliths. The submandibular glands are normal. The thyroid gland is normal. No pathologic size criteria or morphologically suspicious cervical chain lymph nodes. Stable appearance of a 7 mm somewhat spiculated right upper lobe nodule as seen on prior chest CT. Redemonstrated peripheral and subpleural centrilobular nodularity within the anterior right upper lobe, presumably post infectious/inflammatory. Centrilobular and paraseptal emphysema. Aberrant course of the right subclavian artery which courses posterior to and indents upon the trachea. Patchy calcific atherosclerotic disease of the aortic arch, great vessel origins, and bilateral carotid bifurcations without hemodynamically significant stenosis on this nondedicated examination. Short segment retropharyngeal course of the mid right cervical ICA. Cervical spondylosis. The imaged portions of the brain parenchyma are unremarkable. Patchy calcific plaque along the bilateral cavernous internal carotid arteries. Osseous thinning of the right jugular plate without ranjit dehiscence into the right hypotympanum. CT/CT soft tissue neck w IV con IMPRESSION: 1. Increased size of multiple relatively homogeneous bilateral parotid/periparotid masses compatible with reported history of Warthin's tumors. A dominant mass in the right parotid tail and extending inferiorly into the right lateral neck response to the location of an overlying marker, measuring 3.2 x 2.1 x 4.4 cm, previously 2.4 x 1.5 x 3.1 cm. Dominant left superficial parotid mass measures 2.5 x 1.8 cm, previously 1.7 x 1.2 cm. 2. Stable appearance of a 7 mm somewhat spiculated right upper lobe nodule as seen on prior chest CT. Redemonstrated peripheral and subpleural centrilobular nodularity within the anterior right upper lobe, presumably post infectious/inflammatory.
[2024-03-22] MEDS: iohexoL 350 MG/ML 75 ML INFUS..BTL 60 ML IV (12:04)
== END 2024-03-22 10:48 | disposition home or self-care (01) ==
LOC: HO.CT 10:47
PROVIDERS: PCP Internal Medicine; Visit Provider Surgery
DX: D11.9 Benign neoplasm of major salivary gland, unspecified (principal)
CPT/HCPCS: 70491; Q9967

== ENCOUNTER 2024-05-02 11:44 | Outpatient (AMB) | payer MEDICARE, SELFPAY ==
[2024-05-02 11:48] VITALS: BMI 28.4
--- NOTE | 2024-05-02 11:48 | MHC.OFFVIS ---
Vital Signs 05/02/24 11:48 Height 5 ft 4 in Weight 165 lb 3.995 oz BMI 28.4 Intake Visit Reasons: Follow up after cat scan Intake Note: Ct-Scan follow-up. Patient c/o; reports no complaints. Magazine Publisher Required: No Accompanied by: Self / Same As Patient Allergies No Known Allergies Allergy (Verified 05/02/24 11:49) Medication List - Last Reconciled 05/02/24 by Iglesia Montiel MD fluoxetine 20 mg PO DAILY hydrochlorothiazide 25 mg PO DAILY lisinopril 10 mg PO DAILY simvastatin 40 mg PO BEDTIME trazodone 50 mg PO BEDTIME PRN HPI HPI Follow up after cat scan: Details: I had seen him last January 2023 because of her right intra auricular mass. She has had this for several years but this has been increasing in size. She has had previous ultrasound showing this as well. I had ordered for repeat ultrasound and asked her to follow-up but she states that she has not come back to me because she has been busy with work for a full month outside of the area and has not been here for over a month. 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 She says she is to have surgery for her cataracts. [facility] Medical History Warthin's tumor Localized swelling, mass or lump of neck Tubular adenoma of colon (~2009) Personal history of nicotine dependence Hip pain Impaired fasting glucose Major depression in full remission Osteopenia of left femoral neck (~2007) Mixed dyslipidemia HTN (hypertension) Surgical History History of left breast biopsy History of colonoscopy Family History Father Cancer of prostate Mother HTN (hypertension) Diabetes mellitus Myocardial infarction CAD (coronary artery disease) Brother No problems noted. Brother No problems noted. Sister ALS (amyotrophic lateral sclerosis) Other Mental health disorder Social History Housing: Apartment Alcohol intake: current Patient Tobacco Use Status: Current everyday Tobacco user Cigarettes Per Day: 10 Years Smoked: 50 years e-Cigarette/Vaping Use: Never Used Current occupational status: retired Cognitive needs: No Hearing needs: No Vision needs: Yes Review of Systems Const Denies chills and Denies fever(s) Card Denies chest pain, Denies dyspnea and Denies dyspnea on exertion Resp Denies cough, Denies dyspnea and Denies dyspnea on exertion GI Denies hematochezia and Denies change in bowel habits Denies hematuria Musc Denies back pain and Denies limited range of motion Neuro Denies focal weakness and Denies convulsions Psych Denies depression and Denies mood swings Physical Exam Vital Signs: BMI result Body Mass Index 28.4 Neck Other: On the right infra-auricular area is note of a large mass, not well-defined, about 4 cm in widest dimension, nontender, though we in consistency, with no skin inflammation Assessment & Plan Assessment & Plan (1) Warthin's tumor: Code(s): D11.9 - Benign neoplasm of major salivary gland, unspecified Category: Medical Plan Her ultrasound shows increase size of multiple relatively homogeneous bilateral parotid and parotid masses palpable with a history of Warthin's tumors. I will therefore send her to the head and neck surgeons in [facility]. I explained to her these findings and what the plan will be She says she had she is currently with other health issues and needs to have cataract surgery. She understands the plan however with regards to this parotid mass. Coding Level of Care Code Est Pt Level 3 (33264) Diagnoses Warthin's tumor D11.9
== END 2024-05-02 11:52 | disposition home or self-care (01) ==
PROVIDERS: PCP Internal Medicine; Visit Provider Surgery
DX: D11.9 Benign neoplasm of major salivary gland, unspecified (principal)
CPT/HCPCS: 99213

== ENCOUNTER → 2024-05-02 11:44 | Outpatient (BNVA) | payer MEDICARE, SELFPAY | PROVIDERS: PCP Internal Medicine; Visit Provider Surgery | DX: D11.9 Benign neoplasm of major salivary gland, unspecified (principal) | CPT/HCPCS: 99212 ==

== ENCOUNTER 2024-06-19 11:55 | Outpatient (AMB) | payer MEDICARE, SELFPAY ==
[2024-06-19 12:42] VITALS: BP 130/64; PULSE 75; O2SAT 96; BMI 29.2
--- NOTE | 2024-06-19 12:42 | MHC.PC.OV ---
Vital Signs 06/19/24 12:42 Height 5 ft 4 in Weight 170 lb BMI 29.2 BP 130/64 Blood Pressure Location Lt brachial Position Sitting Pulse 75 Pulse Source Pulse Oximeter Pulse Oximetry (%) 96 Oxygen Delivery Method Room Air Intake Visit Reasons: Pre-Op Cataracts 06/26-07/17 Intake Note: Pt is here today for pre-op cataract surgery Lt eye 06/26 & Rt eye 07/17 Dr. Brown [facility] Allergies No Known Allergies Allergy (Verified 06/19/24 12:51) Medication List - Last Reconciled 06/19/24 by Roxy Clark MD hydrochlorothiazide 25 mg PO DAILY lisinopril 10 mg PO DAILY simvastatin 40 mg PO BEDTIME trazodone 50 mg PO BEDTIME PRN Tobacco use date assessed: 06/19/24 Fall risk assessment: No Falls in past year Last assessed Fall Risk: 06/19/24 Dental Screening Dental Screen Date: 06/19/24 Did you have a dental visit in the last 12 months?: Yes Did you have a dental problem in the last 6 months where you did not have access to dental care?: No Was dental information given to patient?: Patient has dentist HPI Pre-Op Cataracts 06/26-07/17 HPI Details 68-year-old lady with hypertension, osteopenia, and hyperlipidemia here today for preoperative exam for cataract surgery. She is scheduled for 06/26/2024 for her left eye, and 07/07/2024 for her right eye, requested by Dr. Brown. She has been feeling well, with no complaints at present time, blood pressure and lipids are stable and controlled on present treatment [facility] Medical History (Updated 06/19/24 @ 13:03 by Roxy Clark MD) Warthin's tumor Tubular adenoma of colon (~2009) Personal history of nicotine dependence Hip pain Impaired fasting glucose Major depression in full remission Osteopenia of left femoral neck (~2007) Mixed dyslipidemia HTN (hypertension) Surgical History History of left breast biopsy History of colonoscopy Family History Father Cancer of prostate Mother HTN (hypertension) Diabetes mellitus Myocardial infarction CAD (coronary artery disease) Brother No problems noted. Brother No problems noted. Sister ALS (amyotrophic lateral sclerosis) Other Mental health disorder Social History Housing: Apartment Alcohol intake: current Patient Tobacco Use Status: Current everyday Tobacco user Cigarettes Per Day: 10 Years Smoked: 50 years Packs per year/per ci.00 e-Cigarette/Vaping Use: Never Used Current occupational status: retired Cognitive needs: No Hearing needs: No Vision needs: Yes Questionnaire PHQ-9 Over the last 2 weeks, how often have you been bothered by any of the following problems? 1. Little interest or pleasure in doing things: not at all 2. Feeling down, depressed, or hopeless: not at all 3. Trouble falling or staying asleep, or sleeping too much: not at all 4. Feeling tired or having little energy: not at all 5. Poor appetite or overeating: not at all 6. Feeling bad about yourself - or that you are a failure or have let yourself or your family down: not at all 7. Trouble concentrating on things, such as reading the newspaper or watching television: not at all 8. Moving or speaking so slowly that other people could have noticed. Or the opposite - being so fidgety or restless that you have been moving around a lot more than usual: not at all 9. Thoughts that you would be better off or of hurting yourself in some way: not at all Total score: 0 Depression Screening Interpretation: Negative Depression Screening Done: Yes 92575 - PHQ-9 Billing: Yes Source: Developed by Drs. Alin Arellano, Yuko Matos, Live Carrion and colleagues, with an educational felicia from [employer]. Thrive Questionnaire Date Thrive assessed: 06/19/24 I am a: Patient What is your living situation today?: I have a steady place to live Within the past 12 months, did the food you bought not last and you didn't have the money to get more?: Never true Within the past 12 months, did you worry whether your food would run out before you got money to buy more?: Never true Do you have trouble paying for medicines?: No Do you have trouble getting transportation to medical appointments?: No Do you have trouble paying your heating and electricity bill?: No Do you have trouble taking care of your child, family member or friend?: No Do you have trouble with day-to-day activities such as bathing, preparing meals, shopping, managing finances, etc.?: No Are you currently unemployed and looking for a job?: No Are you interested in more education?: No Please select the resources that you would like help with: Housing/Skilled Nursing Currently or been in a relationship where the following occur: I choose not to answer THRIVE Score: 0 AUDIT C Alcohol Use Questionnaire (AUDIT-C) 2. How many drinks containing alcohol do you have on a typical day when you are drinking?: 1 or 2 Total Score: 0 BRITTANI-7 AMB Questionnaire BRITTANI-7 Date BRITTANI - 7 assessed: 06/19/24 Feeling nervous, anxious, or on edge: 0 = Not at all Not being able to stop or control worryin = Not at all Worrying too much about different things: 0 = Not at all Trouble relaxin = Not at all Being so restless that it is hard to sit still: 0 = Not at all Becoming easily annoyed or irritable: 0 = Not at all Feeling afraid as if something awful might happen: 0 = Not at all Total BRITTANI-7 score (0-4 normal; 5-9 mild; 10-14 moderate; 15-21 severe): 0 Source: Developed by Drs. Alin Arellano, Yuko Matos, Live Carrion and colleagues, with an educational felicia from [employer]. BRITTANI-7 Assessment Billing BRITTANI-7 Assessment Tool: BRITTANI-7 Assessment 25256 Review of Systems Const Denies chills and Denies fever(s) Eyes Reports blurry vision ENT Reports no additional complaints Card Denies chest pain, Denies dyspnea and Denies dyspnea on exertion Resp Denies cough, Denies dyspnea and Denies dyspnea on exertion GI Denies hematochezia and Denies change in bowel habits Denies hematuria Musc Denies back pain and Denies limited range of motion Neuro Denies focal weakness and Denies convulsions Psych Denies depression and Denies mood swings Endo Reports no additional complaints Garth/Lymph Denies easy bleeding and Denies easy bruising Aller/Immun Reports no additional complaints Physical exam (Primary Care) Vital Signs: Last Vital Signs Pulse 75 06/19/24 12:42 BP 130/64 06/19/24 12:42 Pulse Ox 96 06/19/24 12:42 Oxygen Delivery Method Room Air 06/19/24 12:42 BMI result Body Mass Index 29.2 Tobacco/Smoking Status: Tobacco use Status Tobacco use date assessed 06/19/24 06/19/24 12:47 Patient Tobacco Use Status Current everyday Tobacco 06/19/24 12:44 e-Cigarette/Vaping Use Never Used 06/19/24 12:44 Are you ready to quit: No PHQ-9: PHQ-9 Score PHQ-9: Total score 0 06/19/24 12:58 Depression Screening Interpretation: Negative Thrive Assessment: Date of Thrive Assessment Date Thrive assessed 06/19/24 06/19/24 12:47 Currently or been in a relationship where the following occur: I choose not to answer Const Other: Alert oriented x3, no acute distress noted, ambulatory with normal gait Orientation/consciousness: patient oriented x3 HENMT Mouth: Normal oral and palatal mucosa present and moist mucous membranes Eyes General: appearance normal, both eyes and all related structures Neck Other: Supple no lymphadenopathy, thyroid gland nonpalpable Resp Auscultation: clear to auscultation bilaterally Cardio Other: S1 And S2 present regular rate and rhythm GI Palpation (GI): Soft to palpation, nontender, no guarding and no masses Auscultation: normal bowel sounds Skin General skin exam: no rashes or lesions noted Neuro General: patient oriented x3, gait normal, tone normal, moves all extremities, Normal light touch and pain sensation, no focal motor deficits and CN's II-XI intact bilaterally Extrem General: Yes full ROM, Yes no joint enlargement, Yes no pedal edema, Yes no calf tenderness and Yes normal gait Psych Appearance: grossly normal and well kempt Mental Status: mental status grossly normal Speech and movement: Normal speech and movement present Affect: normal affect Attitude: cooperative Thought process: Normal thought process present Thought content: Normal thought content present Assessment and Plan Assessment & Plan (1) Preoperative examination: Code(s): Z01.818 - Encounter for other preprocedural examination Plan: 68-year-old lady here today for preoperative exam for cataract surgery requested by Dr. Brown. , hypertension, lipids are all well controlled on present treatment . Has no known cardiac history. Preoperative exam is unremarkable. Patient with low cardiac risk index for proposed surgery (2) HTN (hypertension): Code(s): I10 - Essential (primary) hypertension Qualifiers: Hypertension type: essential hypertension Qualified Code(s): I10 - Essential (primary) hypertension Plan: Blood pressure at goal of less than 130/80. Continue with current medication. Reinforced importance of following a low sodium diet, getting regular exercise, and lowering stress levels. (3) Mixed dyslipidemia: Code(s): E78.2 - Mixed hyperlipidemia (4) Impaired fasting glucose: Code(s): R73.01 - Impaired fasting glucose Plan: Last fasting glucose within normal limits. Impaired glucose metabolism increases the risk for developing diabetes mellitus type 2, as well as heart attack and stroke later on. Lifestyle changes that promotes weight loss, healthy eating habits, and regular exercise are important, and can prevent the progression to diabetes Coding Level of Care Code Est Pt Level 4 (36864) Complex EM visit Add On G2211 Diagnoses Preoperative examination Z01.818 Essential hypertension I10 Hypertension type: essential hypertension Mixed dyslipidemia E78.2 Impaired fasting glucose R73.01 Additional Codes BRITTANI-7 Assessment Billing - BRITTANI-7 Assessment Tool: BRITTANI-7 Assessment 29272 ([id number])
== END 2024-06-19 13:07 | disposition home or self-care (01) ==
PROVIDERS: PCP Internal Medicine; Visit Provider Internal Medicine
DX: I10 Essential (primary) hypertension (principal); Z01.818 Encounter for other preprocedural examination; E78.2 Mixed hyperlipidemia; R73.01 Impaired fasting glucose
CPT/HCPCS: 99214; G2211

== ENCOUNTER 2024-10-15 10:45 | Outpatient (REF) | payer MEDICARE, SELFPAY | END 2024-10-15 10:46 | disposition home or self-care (01) | LOC: HO.CT 10:45 | PROVIDERS: PCP Internal Medicine; Visit Provider Physician Assistant Medical | DX: Z12.2 Encounter for screening for malignant neoplasm of respiratory organs (principal); F17.210 Nicotine dependence, cigarettes, uncomplicated | CPT/HCPCS: 71271 ==

== ENCOUNTER 2024-10-17 11:29 | Outpatient (REF) | payer MEDICARE, SELFPAY ==
--- NOTE | ~2024-10-17 | MM_ITS ---
EXAMINATION: BONE DENSITOMETRY CLINICAL INDICATION: Other specified disorders of bone density and structure. COMPARISON: Previous BD dated 10/06/2019 and baseline BD dated 02/02/2008. TECHNIQUE: Using a [employer] DXA System (software version: 13.1) manufactured by [employer], dual-energy x-ray absorptiometry was performed of the lumbar spine and left hip. The images are of good technical quality. Summary results are attached. FINDINGS: LEFT FEMUR, NECK: Current: BMD 0.905 g/cm2, Z-score 0.5, T-score -1.0, normal. Prior: BMD 0.850 g/cm2. Baseline: BMD 0.882 g/cm2. LEFT FEMUR, TOTAL: Current: BMD 0.933 g/cm2, Z-score 0.6, T-score -0.6, normal, 1.5% decrease from previous, 4.2% decrease from baseline (<5% change is not significant). Prior: BMD 0.947 g/cm2. Baseline: BMD 0.974 g/cm2. AP SPINE L1-L4: Current: BMD 1.308 g/cm2, Z-score 2.4, T-score 1.1, normal, 10.4% decrease from previous, 10.3% increase from baseline (<5% change is not significant). Prior: BMD 1.185 g/cm2. Baseline: BMD 1.186 g/cm2. IDENTIFIED RISK FACTORS: Menopause, current smoker. HISTORY OF FRACTURE: None listed. MEDICATIONS: Vitamin D. MM/XR DEXA axial skeleton IMPRESSION: 1. DIAGNOSIS: Normal bone density based on the lowest T-score value of -1.0 in the femoral neck applying World Health Organization criteria. 2. 10-YEAR FRACTURE RISK PREDICTION, FRAX: According to the guidelines, FRAX calculation should only be performed on patients in the osteopenia bone density category. Therefore, FRAX was not performed on this patient. 3. Treatment Recommendations: NOF guidelines recommend consideration for treatment in postmenopausal women and men age 50 and older presenting with the following: -A hip or vertebral (clinical or morphometric) fracture. -T-score less than or equal to -2.5 at the femoral neck or spine after appropriate evaluation to exclude secondary causes. -Low bone mass at the hip or spine and a 10-year fracture probability by FRAX of greater than or equal to 3% for hip fracture or greater than or equal to 20% for major osteoporotic fracture based on the [place] adapted WHO algorithm. 4. Other Recommendations: All treatment decisions require clinical judgment and consideration of individual patient factors, including patient preferences, comorbidities, previous drug use, risk factors not captured in the FRAX model (e.g. frailty, falls, vitamin D deficiency, increased bone turnover, interval significant decline in bone density) and possible under or overestimation of fracture risk by FRAX. FUTURE SCAN RECOMMENDATION: People with diagnosed cases of osteoporosis or at high risk for fracture should have regular bone mineral density tests. For patients eligible for Medicare, routine testing is allowed once every 2 years. The testing frequency can be increased to one year for patients who have rapidly progressing disease, those who are receiving or discontinuing medical therapy to restore bone mass, or have additional risk factors. Electronically signed by: Jesse Edmond MD 10/17/2024 05:30 PM [facility]
--- NOTE | ~2024-10-17 | MM_ITS ---
EXAMINATION: MM SCREENING DIGITAL BREAST TOMOSYNTHESIS, BILATERAL CLINICAL INFORMATION: Screening. Asymptomatic. COMPARISON: Mammography: Comparison is made with available priors TECHNIQUE: Digital breast mammography with tomosynthesis is performed in both the craniocaudal and mediolateral oblique views along with computer-aided detection (CAD). FINDINGS: The breasts are heterogeneously dense, which may obscure small masses (ACR BI-RADS breast composition Category c). There are no significant masses, abnormal calcifications, or other abnormalities. MM/MM tomosynthesis screening BI IMPRESSION: No mammographic evidence of malignancy. ASSESSMENT: BI-RADS BI-RADS 1 - Negative RECOMMENDATION: Routine annual mammography screening. 1 year F/U This examination should not preclude the clinical evaluation of a suspicious palpable abnormality. This patient's information was entered into a reminder system with a target due date for their next mammogram. Electronically signed by: Latonya Boggs DO 10/26/2024 09:40 AM B[facility]
== END 2024-10-17 11:30 | disposition home or self-care (01) ==
LOC: HO.MAMMO 11:29
PROVIDERS: PCP Internal Medicine; Visit Provider Internal Medicine
DX: Z12.31 Encounter for screening mammogram for malignant neoplasm of breast (principal); Z13.820 Encounter for screening for osteoporosis; M85.852 Other specified disorders of bone density and structure, left thigh; Z78.0 Asymptomatic menopausal state
CPT/HCPCS: 77063; 77067; 77080

== ENCOUNTER → 2024-10-17 12:15 | Outpatient (BNV) | payer MEDICARE, SELFPAY | PROVIDERS: PCP Internal Medicine; Visit Provider Internal Medicine | DX: Z12.31 Encounter for screening mammogram for malignant neoplasm of breast (principal) | CPT/HCPCS: 77063; 77067 ==

== ENCOUNTER 2024-12-11 08:31 | Outpatient (REF) | payer MEDICARE, SELFPAY ==
--- OUTSIDE RECORDS SUMMARY | 2024-12-11 08:43 | XMS_ITS | Data Portability ---
Author Organization [place] - [facility], Allergy Address [address] [address] Care Team Providers Care Lobby Attendant Name Role Phone NURYS MOYER Primary Care Provider NURYS MOYER Referring Provider [phone] Assessment No assessment recorded. Plan of Treatment Reminders Order Date Submit Date Provider Last Modified By Organization Details Last Modified Time Details Appointments None record ed. Lab None record ed. Referral None record ed. Procedures None record ed. Surgeries None record ed. Imaging None record ed. Medication Orders None record ed. Patient TargetsNo targets recorded. Patient InstructionsNo instructions recorded. Reason for Referral None Reported. Results Created Date Observation Date Name Description Value Unit Range Abnormal Flag Note LastModifiedBy Organization Detail LastModifiedTime 08/27/20 24 03/22/2024 CT, neck, soft tissu e, w/ contr ast No observ ation record ed. [email or web address] Not Available 08/27 13:41:09 Result Notes None recorded. 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 Procedures Surgical History None recorded. Imaging Results Imaging Date Name Status [facility] Details LastModified Time 03/22/2024 CT, neck, soft tissue, w/ contrast completed [email or web address] Information not available 08/27/2024 13:41:09 Procedure Notes None recorded. Medical Equipment None Reported. Allergies No known drug allergies Medications Name Sig Start Date Stop Date Status Note LastModified by Organization Details LastModified Time amoxicillin 500 mg capsule TAKE 4 CAPSULES BY MOUTH ONE HOUR BEFORE APPOINTME NT 07/05 completed Not Available Not Available Not Available trazodone 50 mg tablet Take 1 tablet every day by oral route. active Not Available Not Available No t Available ofloxacin 0.3 % eye drops USE ONE DROP TO THE AFFECTED EYE 4 TIMES A DAY WHILE CONTACT LENS IS IN 07/05 completed Not Available Not Available Not Available simvastatin 40 mg tablet TAKE 1 TABLET BY MOUTH AT BEDTIME active Not Available Not Available No t Available ketorolac 0.5 % eye drops INSTILL 1 DROP INTO LEFT EYE 4 TIMES A DAY FOR 6 WEEKS DIRECTED 07/05 completed Not Available Not Available Not Available lisinopril 10 mg tablet TAKE 1 TABLET BY MOUTH EVERY DAY active Not Available Not Available No t Available hydrochloro thiazide 25 mg tablet TAKE 1 TABLET BY MOUTH EVERY DAY active Not Available Not Available No t Available fluoxetine 20 mg capsule TAKE 1 CAPSULE BY MOUTH EVERY DAY 07/05 completed Not Available Not Available Not Available Vitals Date Recorded Body height Body mass index (BMI) Body weight Provider Name and Address Organization Details Last Updated DateTime 07/05/2024 162.56 cm 29.2 kg/m2 27171.7 g Ayde Justice [facility] 07/05/2024 12:14:27 Social History None recorded. Functional Status None recorded. Mental Status None recorded. Family History Nothing Reported. Medical History Condition Response Hyperlipidemia Y Hypertension Y Gynecological HistoryNo gynecological history recorded. Obstetrics History GPAL:G 0 P 0 0 0 0 Past Encounters Encounter ID Performer Location Encounter Start Date Encounter Closed Date Diagnosis/Indication Diagnosis SNOMED-CT Code Diagnosis ICD10 Code Diagnosis Note [id number] KENNEDY HEATH MD [facility] [address] [address] 07/05/2024 11:27:13 07/16/2024 07:34:21 Benign neoplasm of parotid gland 92359341 D11.0 68-year-ol d female, smoker, with bilateral parotid masses. 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 Her most recent imaging study was at [facility] in March. I have the report but not the images. Among other incidental findings was increased size of multiple relatively homogenous bilateral parotid masses compatible with Warthin's tumor. The dominant mass in the right parotid tail measures 3.2 x 2.1 x 4.4 cm in the dominant left superficia l parotid mass measures 2.5 x 1.8 cm. She has a large parotid tail mass on the right and a smaller one on the left. These are mobile, nontender. We discussed that the Warthin's tumors are benign. We did discuss that while small tumors are commonly observed, we will often recommend surgical interventi on for larger tumors. There is risks of developing infection, continued growth with no surgery.We did discuss the risks of surgery. This includes damage to the facial nerve which can result in paralysis, more frequently temporary and uncommonly permanent, numbness to the ear, gustatory sweating, salivary fluid collection or fistula, bleeding, infection. We discussed the need for a drain postoperat ively..All questions answered. She is not sure if she would like to proceed with surgery but would let us know if that changes. Health Concerns Section Related Observation LastModified by Organization Detai ls LastModified Time None Recorded Concern Status LastModified by Organization Details LastModified Time None Recorded Advance Directives Directive None Recorded Payers Encounter Date Sequence Insurance Name Policy Number Policy Owen Covered Member ID Owen Member ID Guarantor Name 07/05/2024 1 [facility] [id number] Sarah Rodriges [id number] Sarah Rodriges Notes Date Note Type Note Provider Name and Address Organization Details Recorded Time 07/05/2024 text/html 68-year-old mai mclean presents today for evaluation of parotid tumors. She has had them for years. They are not particularly bothersome. She has had both biopsied in the past and they have been positive for Warthin's tumors. She denies any pain. She denies any infection. Her most recent imaging study was at [place] in March. I have the report but not the images. Among other incidental findings was increased size of multiple relatively homogenous bilateral parotid masses compatible with Warthin's tumor. The dominant mass in the right parotid tail measures 3.2 x 2.1 x 4.4 cm in the dominant left superficial parotid mass measures 2.5 x 1.8 cm KENNEDY HEATH MD [address] [place] [address], [place], [phone], [facility] - [facility] 07/16/2024 05:48:55 OBGyn Episode No OBEpisode recorded.
[2024-12-11 10:55] LABS: Estimated Average Glucose 128 mg/dL; Hemoglobin A1C 157.0494 umol/L; Hemoglobin A1c % 6.1 % (<6.0); Total Hemoglobin (HGBA1C) 3670.9797 umol/L
[2024-12-11 11:11] LABS: Alanine Aminotransferase 37 U/L (0-31); Albumin Level 4.2 g/dL (3.5-5.0); Alkaline Phosphatase 112 U/L (39-117); Anion Gap 13 (12-20); Aspartate Amino Transferase 27 U/L (5-31); Bilirubin Total 0.4 mg/dL (0.0-1.0); Blood Urea Nitrogen 17 mg/dL (9-16); Carbon Dioxide 26 mmol/L (22-29); Chloride 107 mmol/L (96-108); Cholesterol 171 mg/dL (<200); Estimated Glomerular Filt Rate > 60; Glucose Fasting 125 mg/dL (60-99); HDL Cholesterol 50 mg/dL (>40); LDL Cholesterol Calculated 92 mg/dL (<100); Potassium 3.7 mmol/L (3.3-5.1); Sodium 142 mmol/L (135-145); Total Protein 7.6 g/dL (6.5-8.0); Triglycerides 147 mg/dL (<150)
[2024-12-11 11:19] LABS: Vitamin D 25-OH Total 64.5 ng/mL (>30)
== END 2024-12-11 08:32 | disposition home or self-care (01) ==
LOC: HO.HMGCLDS 08:31
PROVIDERS: PCP Internal Medicine; Visit Provider Internal Medicine
DX: F32.5 Major depressive disorder, single episode, in full remission (principal); I10 Essential (primary) hypertension; E78.2 Mixed hyperlipidemia; R73.01 Impaired fasting glucose; M85.852 Other specified disorders of bone density and structure, left thigh; Z87.891 Personal history of nicotine dependence
CPT/HCPCS: 36415; 80053; 80061; 82306; 83036

== ENCOUNTER 2025-05-30 09:31 | Outpatient (AMB) | payer MEDICARE, SELFPAY ==
--- NOTE | 2025-05-30 09:40 | AM.OFFVISMDC ---
Intake Vital Signs 05/30/25 09:41 Height 5 ft 4 in Weight 161 lb BMI 27.6 BP 136/68 Blood Pressure Location Lt brachial Position Sitting Respiration 16 Pulse 77 Pulse Source Pulse Oximeter Temp 98.1 F Temp Source Oral Pulse Oximetry (%) 96 Oxygen Delivery Method Room Air Intake Visit Reasons: AWV G0438 Intake Note: Pt is here today for her AWV: Last mammogram 10/17/24, bone density scan 10/17/24, colonoscopy 12/10/20 Allergies No Known Allergies Allergy (Verified 05/30/25 10:01) Medication List - Last Reconciled 05/30/25 by Roxy Clark MD hydrochlorothiazide 25 mg PO DAILY lisinopril 10 mg PO DAILY simvastatin 40 mg PO BEDTIME HPI AWV G0438 HPI Details AWV ? 69 year old lady , presents for her ? Annual Wellness Visit, initial visit.? Up-to-date with her screening mammogram done 10/17/2024 with benign findings, no longer gets Pap smears, overdue for her colonoscopy screening, last done by Dr. Maier in 2020 with removal of 2 tubular adenoma polyps, due now for a repeat colonoscopy. She had a bone density scan in 2023 which showed normal findings, no history of fractures. She is up-to-date with all her vaccines. ? Medical / Social History Reviewed? Past Medical History ?Yes . ? [place] of Care / Care Team list updated ?Yes . ? Surgical/Hospitalization History ?Yes . ? Current Medications (including OTC and supplements) ?Yes . ? Family History ?Yes . ? Tobacco Control form ?Yes . ? AUDIT-C (Alcohol use) form ?Yes . ? Illicit drug use in Social History ?Yes . ? Current diagnosis of depression? ?No ? Appropriate PHQ2/PHQ9 completed ?Yes . ? Data entered by ?Hand Former Helper and reviewed by provider ? Fall Risk ? Fall History? Have you had any falls with injury in the past year? ?No . ? Have you had two or more falls in the past year? ?No . ? Fall Risk Assessment: ?No falls in the past year . ? HRA filled out by the patient, reviewed by Provider and scanned. ?AWV ? Balance? Romberg negative ? Tandem walk ?Yes . ? Walk and Turn ?Yes . ? Rise from sit to stand ?Yes . ?Vision? Corrective lens, goes to see [facility] for her routine eye exam, had cataracts removed, no history of glaucoma ?Hearing? Whisper test ?pass . ?Written Plan?Completed. See Patient Documents.?-patient declined to do a healthcare proxy or a MOLST form. HPI Comments History of Present Illness Details She is also here for follow-up on her hypertension currently on lisinopril and hydrochlorothiazide, has been feeling well with no complaints of chest pain, no headache or lightheadedness or shortness of breath. She has mixed dyslipidemia, currently taking simvastatin 40 mg at bedtime. Complains of frequent urinary stress incontinence, always has to wear panty liners especially when she goes out as she would leak whenever she laughs or coughs. Denies any accompanying urinary frequency, no dysuria or lower abdominal discomfort. Has a lump on her left elbow that is increasing the size, denies any pain over said area but would like it removed Continues to smoke cigarettes, with no desire to quit at present time. Currently getting yearly low-dose CAT scans for lung cancer screening Has been diagnosed to have Warthin's tumor right more than the left. Has been seen by cloth shearer who recommended surgical removal but patient declined to have it done at this time, states that it does not bother her at all [facility] Medical History (Updated 05/30/25 @ 10:24 by Roxy Clark MD) Advance directive declined by patient Synovial cyst of elbow Urinary, incontinence, stress female Nicotine dependence, cigarettes, uncomplicated Warthin's tumor Tubular adenoma of colon (~2009) Hip pain Impaired fasting glucose Major depression in full remission Osteopenia of left femoral neck (~2007) Mixed dyslipidemia HTN (hypertension) Surgical History History of left breast biopsy History of colonoscopy Family History Father Cancer of prostate Mother HTN (hypertension) Diabetes mellitus Myocardial infarction CAD (coronary artery disease) Brother No problems noted. Brother No problems noted. Sister ALS (amyotrophic lateral sclerosis) Other Mental health disorder Social History Housing: Apartment Alcohol intake: current Patient Tobacco Use Status: Current everyday Tobacco user Cigarettes Per Day: 10 Years Smoked: 50 years e-Cigarette/Vaping Use: Never Used Current occupational status: retired Cognitive needs: No Hearing needs: No Vision needs: Yes Questionnaire Medicare Wellness Checkup What [age] What gender do you identify with?: female During the past 4 weeks, how much have you been bothered by emotional problems such as feeling anxious, depressed, irritable, sad or downhearted, and blue?: not at all During the past 4 weeks, has your physical & emotional health limited your social activities with family, friends, neighbors, or groups?: not at all During the past 4 weeks, how much bodily pain have you generally had?: very mild pain During the past 4 weeks, was someone available to help you if you needed & wanted help?: yes, quite a bit During the past 4 weeks, what was the hardest physical activity you could do for at least 2 minutes?: light Can you get to places out of walking distance without help? (For eg., can you travel alone on buses, taxis or drive your car?): Yes Can you go shopping for groceries or clothes without someone's help?: Yes Can you prepare your own meals?: Yes Can you do your housework without help?: Yes Because of any health problems, do you need the help of another person with your personal care needs such as eating, bathing, dressing or getting around the house?: No Can you handle your own money without help?: Yes During the past 4 weeks, how would you rate your health in general?: very good During the past 4 weeks how have things been going for you?: pretty well Are you having difficulties driving your car?: no Do you always fasten your seat belt when you are in a car?: yes, usually During past 4 weeks, have you been bothered by the following: never: Falling or dizzy when standing up and Problems using the telephone?, seldom: Trouble eating well? and Tiredness or fatigue? and often: Teeth or denture problems? Have you fallen 2 or more times in the past year?: No Are you afraid of falling?: No Are you a smoker?: yes, but I'm not ready to quit During the past 4 weeks, how many drinks of wine, beer, or other alcoholic beverages did you have?: 2-5 drinks per week Do you exercise for about 20 minutes 3 or more times a week?: no, I usually do not exercise this much Have you been given information to help with the following?: no: Hazards in your house that might hurt you? and no: Keeping track of your medications? How often do you have trouble taking medicines the way you have been told to take them?: I always take medicine as prescribed How confident are you that you can control & manage most of your health problems?: very confident What is your race?: White Mini Mental State Exam (MMSE) Orientation What is the (year) (season) (date) (day) (month)?: year (2024), season (Summer), date (05/30/2025), day () and month (May) Where are we (state) (county) (town or city) (hospital) (floor)?: state ([place]), county ([place]), town or city ([place]) and hospital/clinic ([facility]) Score Score: 9 Activity of Daily Living Bathing - sponge bath, tub bath or shower: receives no assistance (gets in/out by self, if usual bathing means Dressing - getting clothes from closets & drawers, including inner/outer garments & fasteners.: gets clothes & gets completely dressed without help Toileting - going to the 'toilet room' for urine/bowel elimination & cleaning self/arranging clothes: goes to toilet room, cleans self, arranges clothes without help Transfer: moves in & out of bed and chair without help (may use support object) Continence: has occasional 'accidents' Feeding: feeds self without help Total Score: 0 Information obtained from: patient Using telephone: independent Traveling: independent Shopping: independent Preparing meals: independent Housework: independent Taking medicine: independent Managing money: independent PHQ-9 Over the last 2 weeks, how often have you been bothered by any of the following problems? 1. Little interest or pleasure in doing things: not at all 2. Feeling down, depressed, or hopeless: not at all 3. Trouble falling or staying asleep, or sleeping too much: several days 4. Feeling tired or having little energy: several days 5. Poor appetite or overeating: several days 6. Feeling bad about yourself - or that you are a failure or have let yourself or your family down: not at all 7. Trouble concentrating on things, such as reading the newspaper or watching television: not at all 8. Moving or speaking so slowly that other people could have noticed. Or the opposite - being so fidgety or restless that you have been moving around a lot more than usual: not at all 9. Thoughts that you would be better off or of hurting yourself in some way: not at all Total score: 3 Depression Screening Interpretation: Negative Depression Screening Done: Yes 13347 - PHQ-9 Billing: Yes Source: Developed by Drs. Alin Arellano, Yuko Matos, [employer] and colleagues, with an educational felicia from [employer]. Review of Systems Const Denies chills and Denies fever(s) Eyes Reports blurry vision ENT Reports no additional complaints Card Denies chest pain, Denies dyspnea and Denies dyspnea on exertion Resp Denies cough, Denies dyspnea and Denies dyspnea on exertion GI Denies hematochezia and Denies change in bowel habits Reports as per HPI, Denies hematuria, Denies difficulty voiding and Denies genital pruritis Musc Denies back pain and Denies limited range of motion Skin/Breast Denies breast swelling, Denies breast pain and Denies breast mass Neuro Denies focal weakness and Denies convulsions Psych Denies depression and Denies mood swings Endo Reports no additional complaints Garth/Lymph Denies easy bleeding and Denies easy bruising Aller/Immun Reports no additional complaints Physical Exam Vital Signs: Last Vital Signs Temp 98.1 F 05/30/25 09:41 Pulse 77 05/30/25 09:41 Resp 16 05/30/25 09:41 BP 136/68 05/30/25 09:41 Pulse Ox 96 05/30/25 09:41 Oxygen Delivery Method Room Air 05/30/25 09:41 BMI result Body Mass Index 27.6 Const Other: Alert oriented x3, no acute distress, normal gait Orientation/consciousness: patient oriented x3 HEENT Other: Nontender mass over parotid area bilaterally right more than the left Ears: external ears normal, TM's normal bilaterally and EAC's normal Mouth: Normal oral and palatal mucosa present, oropharynx normal and moist mucous membranes Neck Other: Neck is supple with no lymphadenopathy, thyroid gland nonpalpable, full range of motion Resp Other: Clear to auscultation bilaterally Cardio Rate: regular rate Rhythm: regular rhythm Heart sounds: S1 normal heart sound present and S2 normal heart sound present GI Other: Normal bowel sounds, soft, nontender, no mass palpated Skin General skin exam: no rashes or lesions noted Neuro General: patient oriented x3, gait normal, tone normal, moves all extremities, Normal light touch and pain sensation and no focal motor deficits Extrem General: Yes full ROM, Yes no joint enlargement, Yes no pedal edema, Yes no calf tenderness and Yes normal gait Psych Appearance: grossly normal and well kempt Mental Status: mental status grossly normal Speech and movement: Normal speech and movement present Affect: normal affect Assessment & Plan Assessment & Plan (1) Urinary, incontinence, stress female: Code(s): N39.3 - Stress incontinence (female) (male) Plan: Started solifenacin 5 mg once a day. Return to clinic if after 1 or 2 weeks no improvement of symptoms (2) Synovial cyst of elbow: Code(s): M71.329 - Other bursal cyst, unspecified elbow Plan: Referred to general surgery for excision of mass (3) HTN (hypertension): Code(s): I10 - Essential (primary) hypertension Qualifiers: Hypertension type: essential hypertension Qualified Code(s): I10 - Essential (primary) hypertension Plan: Continued on lisinopril 10 mg daily and hydrochlorothiazide 25 mg in the morning (4) Mixed dyslipidemia: Code(s): E78.2 - Mixed hyperlipidemia Plan: Continue simvastatin 40 mg at bedtime, fasting lipids ordered (5) Osteopenia of left femoral neck: Onset Date: ~2007 Comment: (Bone Dexa Femur T-Score: -1.1 on 02/02/08 & -1.3 on 12/06/18) Code(s): M85.852 - Other specified disorders of bone density and structure, left thigh Plan: Reinforced importance of taking vitamin-D 3 supplements at least 2000 units daily and taking adequate calcium from dietary sources, in addition to adhering to regular weight-bearing exercise (6) Impaired fasting glucose: Code(s): R73.01 - Impaired fasting glucose Plan: Your previous fasting blood sugars were elevated above 100 mg/dL. Impaired glucose metabolism increases the risk for developing diabetes mellitus type 2, as well as heart attack and stroke later on. Lifestyle changes that promotes weight loss, healthy eating habits, and regular exercise are important, and can prevent the progression to diabetes (7) Multiple pulmonary nodules: Code(s): R91.8 - Other nonspecific abnormal finding of lung field Plan: Gets annual lung cancer screenings (8) Nicotine dependence, cigarettes, uncomplicated: Comment: (current smoker, 50pyh - 1ppd, in LDCT screening program) Code(s): F17.210 - Nicotine dependence, cigarettes, uncomplicated Plan: Patient strongly advised to stop smoking, as smoking damages blood vessels, degenerative of joints and spine, damage to lungs and heart., predisposes to developing certain cancers like lung, breast, bladder, colon. Recommended to try decreasing cigarette use by 1-2 cigarettes a day. Advised to monitor what triggers are for smoking so that this can be discussed on the next office visit. We can discuss different options to quit smoking when ready. (9) Encounter for initial annual wellness visit (AWV) in Medicare patient: Code(s): Z00.00 - Encounter for general adult medical examination without abnormal findings Plan: Medical wellness checklist reviewed, discussed with patient and updated. Patient declined doing any advanced directives. Up-to-date with all her vaccines. Reminded that she is now due again for a repeat colonoscopy , patient states that she will contact Dr. Maier's office to schedule appointment (10) Advance directive declined by patient: Code(s): Z78.9 - Other specified health status Plan: Patient declined doing any advanced directive Orders: Orders Lipid Panel 05/30/25 E78.2 - Mixed hyperlipidemia, I10 - Essential (primary) hypertension, M85.852 - Other specified disorders of bone density and structure, left thigh, R73.01 - Impaired fasting glucose Vitamin D 25-OH Total 05/30/25 E78.2 - Mixed hyperlipidemia, I10 - Essential (primary) hypertension, M85.852 - Other specified disorders of bone density and structure, left thigh, R73.01 - Impaired fasting glucose Aspartate Amino Transferase 05/30/25 E78.2 - Mixed hyperlipidemia, I10 - Essential (primary) hypertension, M85.852 - Other specified disorders of bone density and structure, left thigh, R73.01 - Impaired fasting glucose Alanine Aminotransferase 05/30/25 E78.2 - Mixed hyperlipidemia, I10 - Essential (primary) hypertension, M85.852 - Other specified disorders of bone density and structure, left thigh, R73.01 - Impaired fasting glucose Basic Metabolic Panel Fasting 05/30/25 E78.2 - Mixed hyperlipidemia, I10 - Essential (primary) hypertension, M85.852 - Other specified disorders of bone density and structure, left thigh, R73.01 - Impaired fasting glucose Referrals General Surgery Referral M71.329 - Other bursal cyst, unspecified elbow Medications: New solifenacin 5 mg PO DAILY 30 tabs 1RF Refilled lisinopril 10 mg PO DAILY 90 tabs 4RF I10 - Essential (primary) hypertension simvastatin 40 mg PO BEDTIME 90 tabs 4RF hydrochlorothiazide 25 mg PO DAILY 90 tabs 4RF Quality Reporting (2019) Depression/Bipolar (159/160/161/177) PHQ-9: Total score: 3 Coding Level of Care Code Medicare First (G0438) Est Pt Level 4 (71900) Diagnoses Urinary, incontinence, stress female N39.3 Synovial cyst of elbow M71.329 Essential hypertension I10 Hypertension type: essential hypertension Mixed dyslipidemia E78.2 Osteopenia of left femoral neck M85.852 Impaired fasting glucose R73.01 Multiple pulmonary nodules R91.8 Nicotine dependence, cigarettes, uncomplicated F17.210 Encounter for initial annual wellness visit (AWV) in Medicare patient Z00.00 Advance directive declined by patient Z78.9 Additional Codes PHQ-9 - 57601 - PHQ-9 Billing: Yes ([id number]) Advance Care Planning Advance Care Planning discussion: Declined forms
[2025-05-30 09:41] VITALS: BP 136/68; PULSE 77; RESP 16; TEMP 36.7; O2SAT 96; BMI 27.6
--- OUTSIDE RECORDS SUMMARY | 2025-05-30 10:01 | XMS_ITS | Data Portability ---
Author Organization [place] - [facility], Allergy Address [address] [address] Care Team Providers Care Legal Document Assistant Name Role Phone NURYS MOYER Primary Care Provider NURYS MOYER Referring Provider Assessment No assessment recorded. 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 Medical Equipment None Reported. [...] Updated DateTime 07/05/2024 162.56 cm 29.2 kg/m2 75697.7 g Ayde Figueredo [place] - [facility] 07/05/2024 12:14:27 Social History None recorded. Functional Status None recorded. Mental Status None recorded. Family History Nothing Reported. Medical History Condition Response Hyperlipidemia Y Hypertension Y Gynecological HistoryNo gynecological history recorded. Obstetrics History GPAL:G 0 P 0 0 0 0 Past Encounters Encounter ID Performer Location Encounter Start Date Encounter Closed Date Diagnosis/Indication Diagnosis SNOMED-CT Code Diagnosis ICD10 Code Diagnosis Note [id number] KENNEDY HEATH MD [facility] [address] [address] 07/05/2024 11:27:13 07/16/2024 07:34:21 Benign neoplasm of parotid gland 04149315 D11.0 68-year-ol d female, smoker, with bilateral parotid masses. 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 Her most recent imaging study was at [facility] in March. I have the report but [...] Recorded Advance Directives Directive None Recorded Payers Insurance Date Sequence Insurance Name Policy Number Policy Owen Covered Member ID Owen Member ID Guarantor Name 07/16/2024 1 [facility] [id number] Sarah Rodriges [id number] Sarah Rodriges Notes Date Note Type Note Provider Name and Address Organization Details Recorded Time 07/05/2024 text/html 68-year-old femelyssa mclean presents today for evaluation of parotid tumors. She has had them for years. They are not particularly bothersome. She has had both biopsied in the past and they have been positive for Warthin's tumors. She denies any pain. She denies any infection. Her most recent imaging study was at [facility] in March. I have the report but not the images. Among other incidental findings was increased size of multiple relatively homogenous bilateral parotid masses compatible with Warthin's tumor. The dominant mass in the right parotid tail measures 3.2 x 2.1 x 4.4 cm in the dominant left superficial parotid mass measures 2.5 x 1.8 cm KENNEDY HEATH MD [address] [place] [address], [place], [phone], [facility] - [facility] 07/16/2024 05:48:55 OBGyn Episode No OBEpisode recorded.
--- OUTSIDE RECORDS SUMMARY | 2025-05-30 10:01 | XMS_ITS | Patient Health Record ---
Author Organization [facility] Address [address] [place] [address] Care Team Providers Care Lathe Hand Name Role Phone Amber DEL REAL, Roxy Primary Care Provider Alin Winkler Unavailable [phone] Reason For Referral No Information Medications Medication SIG (Take, Route, Frequency, Duration) Notes Start Date End Date Status hydroCHLOROthiazide 25 MG 1 tablet Orally Once a day Active Simvastatin 40 MG 1 tablet in the even ing Orally Once a day Active Vitamin D Active FLUoxetine HCl 20 MG 1 capsule in the mo rning Orally Once a day Active Multivitamin Adult A ctive traZODone HCl 50 MG 1 tablet at bedtime as needed Orally Once a day Active Lisinopril 10 MG 1 tablet Orally Once a day Active Immunizations Vaccine Route Administration Date Status Comme nts Influenza Unknown 09/20/2020 Administered Social History Alcohol Screen Question Answer Notes Did you have a drink contain ing alcohol in the past year? Yes How often did you have a dri nk containing alcohol in the past year? 4 or more times a week (4 points) How many drinks did you have on a typical day when you were drinking in the past year? 1 or 2 drinks (0 point) Points 4 Interpretation Positive Section Notes: Smoker 1 ppd; 2 glasses of w ine each evening Smoker 1 ppd; 2 glasses of w ine each evening Problems Problem Type SNOMED Code ICD Code Onset Dates Problem Status W/U Status Risk Notes Problem 235550008 Encounter for screening for malignant neoplasm of colon (Z12.11) Active confirmed Problem 110887519 History of adenomatous polyp of colon (Z86.010) Active confirmed Problem Screening for malignant neoplasm of rectum (532630448) Encounter for screening for malignant neoplasm of rectum (Z12.12) Active confirmed Problem 53913545 Preprocedural examination (Z01.818) Active confirmed Plan Of Treatment Pending Test Test Name Order Date Pathology 12/10/2020 Future Test Test Name Order Date COLONOSCOPY 06/09/2016 COLONOSCOPY 09/30/2020 Insurance Providers Payer Name Payer Address Payer Phone Subscriber Number Group Number Insured Name Patient Relationship to Insured Coverage Start Date Coverage End Date [facility] [address] [address] [place] [address] [id number] ANIA GARCIA Self - patient is the insured Medical (General) History Medical History History ICD Code Hyperlipidemia Denies [place],DM,CVA,Lung disease,renal dise ase Colonoscopy 01/2010--Dr. Simon--single tubular adenoma removed Anxiety/Depression HTN Colonoscopy 04/2017 with allyson anusha of 7 tubular adenomas--one was > 1 cm in size and was relatively flat in the area in the hepatic flexure Surgical History Surgery Date(Month/Year)
== END 2025-05-30 10:25 | disposition home or self-care (01) ==
PROVIDERS: PCP Internal Medicine; Visit Provider Internal Medicine
DX: Z00.00 Encounter for general adult medical examination without abnormal findings (principal); I10 Essential (primary) hypertension; N39.3 Stress incontinence (female) (male); M71.329 Other bursal cyst, unspecified elbow; E78.2 Mixed hyperlipidemia; M85.852 Other specified disorders of bone density and structure, left thigh; R73.01 Impaired fasting glucose; R91.8 Other nonspecific abnormal finding of lung field; F17.210 Nicotine dependence, cigarettes, uncomplicated; Z78.9 Other specified health status

== ENCOUNTER → 2025-05-30 09:31 | Outpatient (BNVA) | payer MEDICARE, SELFPAY | PROVIDERS: PCP Internal Medicine; Visit Provider Internal Medicine | DX: Z00.00 Encounter for general adult medical examination without abnormal findings (principal); R91.8 Other nonspecific abnormal finding of lung field; R73.01 Impaired fasting glucose; M85.852 Other specified disorders of bone density and structure, left thigh; I10 Essential (primary) hypertension; N39.3 Stress incontinence (female) (male); M71.329 Other bursal cyst, unspecified elbow; F17.210 Nicotine dependence, cigarettes, uncomplicated; Z71.6 Tobacco abuse counseling; Z78.9 Other specified health status | CPT/HCPCS: 96127; 99212 ==

== ENCOUNTER 2025-07-23 14:24 | Outpatient (AMB) | payer MEDICARE, SELFPAY ==
--- NOTE | 2025-07-23 14:25 | MHC.OFFVIS ---
Vital Signs 07/23/25 14:33 Height 5 ft 4 in Weight 162 lb 2 oz BMI 27.8 BP 158/72 H Blood Pressure Location Lt brachial Position Sitting Pulse 101 H Intake Visit Reasons: Enlarging cyst in left elbow Intake Note: Patient is seen in office for enlarging cyst of the left elbow. 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 She denies any history of trauma or other inciting event. The cyst has gradually increased in size over the last several years. She denies any history of infection, bleeding or discharge from the site. She is requesting removal of the cyst. [facility] Medical History Advance directive declined by patient Synovial cyst of elbow Urinary, incontinence, stress female Nicotine dependence, cigarettes, uncomplicated Warthin's tumor Tubular adenoma of colon (~2009) Hip pain Impaired fasting glucose Major depression in full remission Osteopenia of left femoral neck (~2007) Mixed dyslipidemia HTN (hypertension) Surgical History History of left breast biopsy History of colonoscopy Family History Father Cancer of prostate Mother HTN (hypertension) Diabetes mellitus Myocardial infarction CAD (coronary artery disease) Brother No problems noted. Brother No problems noted. Sister ALS (amyotrophic lateral sclerosis) Other Mental health disorder Social History Housing: Apartment Alcohol intake: current Patient Tobacco Use Status: Current everyday Tobacco user Cigarettes Per Day: 10 Years Smoked: 50 years e-Cigarette/Vaping Use: Never Used Current occupational status: retired Cognitive needs: No Hearing needs: No Vision needs: Yes Review of Systems Const All systems reviewed & are unremarkable except as noted in HPI and below Physical Exam Vital Signs: Last Vital Signs Pulse 101 H 07/23/25 14:33 BP 158/72 H 07/23/25 14:33 BMI result Body Mass Index 27.8 Const General: cooperative and no acute distress Nutritional Appearance: well nourished Orientation/consciousness: patient oriented x3 Limitations: no limitations HEENT Head: Yes normocephalic and Yes atraumatic Ears: hearing grossly normal bilaterally Resp Effort & Inspection: normal respiratory effort, no audible wheezes, no cough and no respiratory distress Cardio Jugular venous distension: no JVD GI Inspection: Yes normal to inspection Skin Other: Warm, dry, no rash Neuro General: patient oriented x3 Extrem General: Yes no clubbing, cyanosis or edema Shoulder/upper arm images:  1. 6 x 5 cm soft tissue mass located in the left forearm just below the elbow as noted below. No redness is appreciated. Findings may be suggestive of a synovial cyst or inclusion cyst. Assessment & Plan Assessment & Plan (1) Synovial cyst of elbow: Code(s): M71.329 - Other bursal cyst, unspecified elbow Category: Medical Plan 69-year-old female patient with a cystic lesion located below the left elbow which has gradually increased in size. We discussed options of referral to orthopedic surgery versus excision as a short-stay surgery. Patient wishes to proceed with surgery to remove the cyst and after discussion of the procedure, risks and alternatives, she consents to the excision of left elbow cyst as a short-stay surgery. Coding Level of Care Code New Pt Level 4 (73676) Diagnoses Synovial cyst of elbow M71.329
[2025-07-23 14:33] VITALS: BP 158/72; PULSE 101; BMI 27.8
== END 2025-07-23 15:10 | disposition home or self-care (01) ==
LOC: HO.HGS 14:24
PROVIDERS: PCP Internal Medicine; Visit Provider Surgery
DX: M71.329 Other bursal cyst, unspecified elbow (principal)
CPT/HCPCS: 99204

== ENCOUNTER → 2025-07-23 14:24 | Outpatient (BNVA) | payer MEDICARE, SELFPAY | PROVIDERS: PCP Internal Medicine; Visit Provider Surgery | DX: M71.322 Other bursal cyst, left elbow (principal) | CPT/HCPCS: 99202 ==

== ENCOUNTER 2025-08-01 11:53 | Day surgery (SDC) | payer MEDICARE, SELFPAY ==
--- NOTE | 2025-07-31 12:29 | P.CONAN_ITS ---
Documented by User: Lou Martinez NP 07/31/25 12:32 HPI - Anesthesia Eval Consult details Narrative: 69yo F for Excision Cyst on Elbow Active snf smoker - no pulmo follow / annual low dose CT screening per PCP visit 05/2025 [facility] Active Problems Active Problems: All Active Problems Advance directive declined by patient (Acute) Synovial cyst of elbow (Acute) Urinary, incontinence, stress female (Acute) Multiple pulmonary nodules (Acute) Nicotine dependence, cigarettes, uncomplicated (Acute) HTN (hypertension) (Acute) Mixed dyslipidemia (Acute) Impaired fasting glucose (Acute) Osteopenia of left femoral neck (Acute ~2007) Past Medical History Medical History Advance directive declined by patient Synovial cyst of elbow Urinary, incontinence, stress female Nicotine dependence, cigarettes, uncomplicated Warthin's tumor Tubular adenoma of colon (~2009) Hip pain Impaired fasting glucose Major depression in full remission Osteopenia of left femoral neck (~2007) Mixed dyslipidemia HTN (hypertension) Family History Family History Father Cancer of prostate Mother HTN (hypertension) Diabetes mellitus Myocardial infarction CAD (coronary artery disease) Brother No problems noted. Brother No problems noted. Sister ALS (amyotrophic lateral sclerosis) Other Mental health disorder Surgical History Surgical History History of left breast biopsy History of colonoscopy Social History Social History Housing: Apartment Alcohol intake: current Alcohol intake frequency: holidays/special occasions only Patient Tobacco Use Status: Current everyday Tobacco user Cigarettes Per Day: 10 Years Smoked: 50 years e-Cigarette/Vaping Use: Never Used Have you been hit, kicked, punched, or otherwise hurt by someone within the past year? If so, by whom?: No Are you DNR?: No Advance Directives: No Advance Directives Information Provided: Yes Current occupational status: retired Cognitive needs: No Hearing needs: No Vision needs: Yes Meds Allergies Allergy/AdvReac Type Severity Reaction Status Date / Time No Known Allergies Allergy Verified 07/23/25 14:33 Assessment and Plan Assessment Anesthesia Assessment: Chart Reviewed Documented by User: Nhan Burnett MD 08/01/25 13:46 PMFSH Past Medical History Medical History Advance directive declined by patient Synovial cyst of elbow Urinary, incontinence, stress female Nicotine dependence, cigarettes, uncomplicated Warthin's tumor Tubular adenoma of colon (~2009) Hip pain Impaired fasting glucose Major depression in full remission Osteopenia of left femoral neck (~2007) Mixed dyslipidemia HTN (hypertension) Functional capacity: independent ambulation Family History Family History Father Cancer of prostate Mother HTN (hypertension) Diabetes mellitus Myocardial infarction CAD (coronary artery disease) Brother No problems noted. Brother No problems noted. Sister ALS (amyotrophic lateral sclerosis) Other Mental health disorder Family history of problems with anesthesia: No Surgical History Surgical History History of left breast biopsy History of colonoscopy History of Problems with Anesthesia: No Social History Social History Housing: Apartment Alcohol intake: current Alcohol intake frequency: holidays/special occasions only Patient Tobacco Use Status: Current everyday Tobacco user Cigarettes Per Day: 10 Years Smoked: 50 years e-Cigarette/Vaping Use: Never Used Have you been hit, kicked, punched, or otherwise hurt by someone within the past year? If so, by whom?: No Are you DNR?: No Advance Directives: No Advance Directives Information Provided: Yes Current occupational status: retired Cognitive needs: No Hearing needs: No Vision needs: Yes Meds Allergies Allergy/AdvReac Type Severity Reaction Status Date / Time No Known Allergies Allergy Verified 07/23/25 14:33 Exam Exam Date and Time: 08/01/2025 Airway TM Dist: >3cm Loose/Missing/Broken Teeth: Yes Heart: rrr Lungs: cta Other: normal Assessment and Plan Assessment Anesthesia Assessment: Anesthesia Plan Discussed and Smoking Cess. Discussed Final Anesthetic Review Family History of Problems with Anesthesia: No History of Problems with Anesthesia: No NPO: Yes ASA Class: II Final Preanesthetic Review: No Changes in Pt Med Stat and Anes Risks/Benef Reviewed Patient Risk: Low Procedure Risk: Low Anesthetic Plan Anesthetic Plan: MAC: Disposition: Standard PACU
--- OUTSIDE RECORDS SUMMARY | 2025-07-31 15:24 | XMS_ITS | Patient Health Record ---
Author Organization [facility] Address [address] [place] [address] Care Team Providers Care Colorer Machine Name Role Phone Amber DEL REAL, Roxy Primary Care Provider Alin Winkler Unavailable [phone] Reason For Referral No Information Medications Medication [...] Problem Status W/U Status Risk Notes Problem 113517165 Encounter for screening for malignant neoplasm of colon (Z12.11) Active confirmed Problem 387765310 History of adenomatous polyp of colon (Z86.010) Active confirmed Problem Screening for malignant neoplasm of rectum (021472958) Encounter for screening for malignant neoplasm of rectum (Z12.12) Active confirmed Problem 02141515 Preprocedural examination (Z01.818) Active confirmed Plan Of Treatment Pending Test Test Name Order Date Pathology 12/10/2020 Future Test Test Name Order Date COLONOSCOPY 06/09/2016 COLONOSCOPY 09/30/2020 Insurance Providers Payer Name Payer Address Payer Phone Subscriber Number Group Number Insured Name Patient Relationship to Insured Coverage Start Date Coverage End Date [facility] [address] [address] [place] [address] [id number] ANIA GARCIA Self - patient is the insured Medical (General) History Medical History History ICD Code Hyperlipidemia Denies [place],DM,CVA,Lung disease,renal dise ase Colonoscopy 01/2010--Dr. Simon--single tubular adenoma removed Anxiety/Depression HTN Colonoscopy 04/2017 with allyson anusha of 7 tubular adenomas--one was > 1 cm in size and was relatively flat in the area in the hepatic flexure Surgical History Surgery Date(Month/Year)
[2025-08-01 05:37] VITALS: BMI 27.8
[2025-08-01 12:00] VITALS: BP 138/65; PULSE 77; RESP 20; TEMP 36.4; O2SAT 95; BMI 26.6
[2025-08-01] MEDS: Lactated Ringers 1,000 ML 100 ML IVCONT (12:26)
--- NOTE | 2025-08-01 13:50 | MHC.SHP ---
Pre-Procedural Eval Section A - 24 Hr Update-Section A only Date of Service: 08/01/25 The patient is an INPATIENT: No Changes since office visit: Yes Patient answered all questions; No Cold of Flu in the past 2 weeks, No New Medical Problems and No Changes in Medication The patient has been examined within 24 hours of the surgical procedure. The History & Physical has been completed within 30 days and I have reviewed it.: No Section B - Complete if H&P > 30 days Chief Complaint: Other bursal cyst, unspecified elbow Details of Present Illness: No change in symptoms Relevant Family History (Specify if Yes): No Relevant Social History: None Present Medications: see Short Stay Collaborative assessment Medical History: No relevant PMH History of Previous Operations: No relevant previous surgery Allergies: Allergies Allergy/AdvReac Type Severity Reaction Status Date / Time No Known Allergies Allergy Verified 07/23/25 14:33 Review of Systems Sugical H&P ROS: Negative: Constitution, Cardiovascular, Respiratory, Neurological, Psychiatric, Hem-Onc, Allergic/Immunologic, Gastrointestinal, Genitourinary, Musculoskeletal and Integumentary Exam Surgical H&P Exam: Normal: HEENT, Normal: Heart, Normal: Lungs, Normal: Extremities, Normal: Abdomen and Normal: Skin Plan Diagnosis/Plan: Unchanged I have reviewed the history and physical and performed a pertinent physical examination on my patient. No changes have occurred unless specified. Time Spent With Patient Time: Total time managing care of this patient today ____ minutes.
--- NOTE | 2025-08-01 14:46 | P.OP_ITS ---
Operative Note Operative Note Date of Service: 08/01/25 Narrative: Preoperative diagnosis: Cyst of left elbow Postoperative diagnosis: Same Procedure: Excision of cyst left elbow Surgeon: Isidro Alfredo MD Custodian Blood Bank: Kelly Eastman PA-C; RAJENDRA Walker Anesthesia: Mac plus local Indications for procedure: 69-year-old female presenting with a large cystic lesion of the left elbow measuring approximately 4 x 3 cm. Operative findings: Cystic lesion left elbow in the subcutaneous tissue Specimen: Cyst of left elbow Estimated blood loss: 4 mL Complications: None Procedure details: Patient was brought to the OR and placed in a supine position. After administering light anesthesia the patient's left arm was prepped with ChloraPrep and draped in a sterile fashion. A surgical time-out was called the consent confirmed. Patient received preoperative antibiotics and Venodyne boots were in place. Local anesthesia consisting of 0.5% Sensorcaine and lidocaine 1% was infiltrated around the lesion. An elliptical incision was then made oriented longitudinally around the cystic lesion. This was carried out through subcutaneous tissue up to the cyst wall. Metzenbaum scissors was then used to dissect the lesion from the surrounding subcutaneous tissue. The lesion was completely excised and sent to pathology for further examination. Hemostasis was a assured using electrocautery. Wounds were then irrigated with saline solution and suctioned dry. Dermis was then reapproximated using interrupted 3-0 Polysorb sutures. Skin was closed using interrupted 3-0 nylon sutures. Sterile dressings consisting of 4 x 4 gauze and Tegaderm were then applied followed by a pressure dressing of 4 x 4 gauze and Hipolito. The patient tolerated the procedure well. Sponge, instrument, and needle counts were reported as correct. The patient was transferred to PACU in stable condition.
[2025-08-01 14:49] VITALS: BP 115/48; PULSE 75; RESP 15; TEMP 36.6; O2SAT 94
[2025-08-01 15:04] VITALS: BP 122/54; PULSE 79; RESP 18; TEMP 36.5; O2SAT 93
== END 2025-08-01 15:32 | disposition home or self-care (01) ==
PROVIDERS: PCP Internal Medicine; Visit Provider Surgery
PROC: (CPT 11404; principal; 2025-08-01 14:10)
DX: L72.0 Epidermal cyst (principal); Z87.39 Personal history of other diseases of the musculoskeletal system and connective tissue; I10 Essential (primary) hypertension; E78.2 Mixed hyperlipidemia; R73.01 Impaired fasting glucose; M85.88 Other specified disorders of bone density and structure, other site; Z79.899 Other long term (current) drug therapy
CPT/HCPCS: 11404; 88304; J0690; J2003; J2250; J2371; J2704; J2795; J3010

== ENCOUNTER → 2025-08-01 11:53 | Outpatient (BNV) | payer MEDICARE, SELFPAY | PROVIDERS: PCP Internal Medicine; Visit Provider Surgery | DX: L72.0 Epidermal cyst (principal) | CPT/HCPCS: 11406 ==

== ENCOUNTER 2025-08-13 09:58 | Outpatient (AMB) | payer MEDICARE, SELFPAY ==
--- NOTE | 2025-08-13 10:12 | A.OFFVIS_ITS ---
Vital Signs 3 08/13/25 10:16 Height 5 ft 4 in Weight 163 lb BMI 28.0 BP 172/79 H Blood Pressure Location Lt brachial Position Sitting Pulse 92 Intake Visit Reasons: S/P exc. cyst Lt. elbow Intake Note: Patient is seen in office for post op assessment post Excision of cyst left elbow. 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 Pathology revealed an epidermal cyst. She tolerated the procedure well and denies any ongoing symptoms. She returns today for suture removal. [facility] Medical History (Updated 08/13/25 @ 10:25 by Isidro Alfredo MD) Advance directive declined by patient Synovial cyst of elbow Urinary, incontinence, stress female Nicotine dependence, cigarettes, uncomplicated Warthin's tumor Tubular adenoma of colon (~2009) Hip pain Impaired fasting glucose Major depression in full remission Osteopenia of left femoral neck (~2007) Mixed dyslipidemia HTN (hypertension) Surgical History Hx of removal of cyst (08/01/25) History of left breast biopsy History of colonoscopy Family History Father Cancer of prostate Mother HTN (hypertension) Diabetes mellitus Myocardial infarction CAD (coronary artery disease) Brother No problems noted. Brother No problems noted. Sister ALS (amyotrophic lateral sclerosis) Other Mental health disorder Social History Housing: Apartment Alcohol intake: current Alcohol intake frequency: holidays/special occasions only Comment: counts correct Patient Tobacco Use Status: Current everyday Tobacco user Cigarettes Per Day: 10 Years Smoked: 50 years e-Cigarette/Vaping Use: Never Used Current occupational status: retired Cognitive needs: No Hearing needs: No Vision needs: Yes Physical Exam Vital Signs: Last Vital Signs Pulse 92 08/13/25 10:16 BP 172/79 H 08/13/25 10:16 BMI result Body Mass Index 28.0 Const General: no acute distress Nutritional Appearance: well nourished Extrem Other: Left elbow incision is clean, dry, and intact without redness or discharge. Sutures removed and Steri-Strips applied. Shoulder/upper arm images: 2 1. Incision left elbow Assessment & Plan Assessment & Plan (1) Epidermal cyst: Code(s): L72.0 - Epidermal cyst Category: Medical Plan Patient returns following excision of a left epidermal cyst of the elbow on 08/01/2025. She tolerated the procedure well and her wounds are healing nicely. She should follow up as needed. Coding Level of Care Code Global (59225) Diagnoses Epidermal cyst L72.0
[2025-08-13 10:16] VITALS: BP 172/79; PULSE 92; BMI 28.0
--- OUTSIDE RECORDS SUMMARY | 2025-08-13 12:02 | XMS_ITS | Patient Health Record ---
Author Organization [facility] Address [address] [place] [address] Care Team Providers Care Anodiser Name Role Phone Amber DEL REAL, Roxy Primary Care Provider Alin Winkler Unavailable [phone] Reason For Referral No Information Medications Medication [...] Problem Status W/U Status Risk Notes Problem 018736277 Encounter for screening for malignant neoplasm of colon (Z12.11) Active confirmed Problem 953627777 History of adenomatous polyp of colon (Z86.010) Active confirmed Problem Screening for malignant neoplasm of rectum (996742762) Encounter for screening for malignant neoplasm of rectum (Z12.12) Active confirmed Problem 63996899 Preprocedural examination (Z01.818) Active confirmed Plan Of Treatment Pending Test Test Name Order Date Pathology 12/10/2020 Future Test Test Name Order Date COLONOSCOPY 06/09/2016 COLONOSCOPY 09/30/2020 Insurance Providers Payer Name Payer Address Payer Phone Subscriber Number Group Number Insured Name Patient Relationship to Insured Coverage Start Date Coverage End Date [facility] [address] [address] [place] [address] [id number] ANIA GARCIA Self - patient is the insured Medical (General) History Medical History History ICD Code Hyperlipidemia Denies [place],DM,CVA,Lung disease,renal dise ase Colonoscopy 01/2010--Dr. Simon--single tubular adenoma removed Anxiety/Depression HTN Colonoscopy 04/2017 with allyson anusha of 7 tubular adenomas--one was > 1 cm in size and was relatively flat in the area in the hepatic flexure Surgical History Surgery Date(Month/Year)
== END 2025-08-13 10:40 | disposition home or self-care (01) ==
LOC: HO.HGS 09:59
PROVIDERS: PCP Internal Medicine; Visit Provider Surgery
DX: L72.0 Epidermal cyst (principal)
CPT/HCPCS: 99024

== ENCOUNTER → 2025-08-13 09:58 | Outpatient (BNVA) | payer MEDICARE, SELFPAY | PROVIDERS: PCP Internal Medicine; Visit Provider Surgery | DX: Z48.817 Encounter for surgical aftercare following surgery on the skin and subcutaneous tissue (principal); Z98.890 Other specified postprocedural states | CPT/HCPCS: 99212 ==

== ENCOUNTER 2025-10-21 10:47 | Outpatient (REF) | payer MEDICARE, SELFPAY ==
--- NOTE | ~2025-10-21 | MM_ITS ---
EXAMINATION: MM SCREENING DIGITAL BREAST TOMOSYNTHESIS, BILATERAL CLINICAL INFORMATION: Screening. Asymptomatic. COMPARISON: Mammography: Comparison is made with available priors TECHNIQUE: Digital breast mammography with tomosynthesis is performed in both the craniocaudal and mediolateral oblique views along with computer-aided detection (CAD). FINDINGS: The breasts are heterogeneously dense, which may obscure small masses. There are no significant masses, abnormal calcifications, or other abnormalities. MM/MM tomosynthesis screening BI IMPRESSION: No mammographic evidence of malignancy. ASSESSMENT: BI-RADS Category 1: Negative RECOMMENDATION: Routine annual mammography screening. 1 year F/U This examination should not preclude the clinical evaluation of a suspicious palpable abnormality. This patient's information was entered into a reminder system with a target due date for their next mammogram. Electronically signed by: Latonya Boggs DO 10/21/2025 12:33 PM BRAYAN
== END 2025-10-21 10:48 | disposition home or self-care (01) ==
LOC: HO.MAMMO 10:47
PROVIDERS: PCP Internal Medicine; Visit Provider Internal Medicine
DX: Z12.31 Encounter for screening mammogram for malignant neoplasm of breast (principal)
CPT/HCPCS: 77063; 77067

== ENCOUNTER → 2025-10-21 11:15 | Outpatient (BNV) | payer MEDICARE, SELFPAY | PROVIDERS: PCP Internal Medicine; Visit Provider Internal Medicine | DX: Z12.31 Encounter for screening mammogram for malignant neoplasm of breast (principal) | CPT/HCPCS: 77063; 77067 ==

== ENCOUNTER 2025-10-22 09:55 | Outpatient (REF) | payer MEDICARE, SELFPAY ==
--- NOTE | ~2025-10-22 | CT_ITS ---
CLINICAL HISTORY: F17.210 - Nicotine dependence, cigarettes, uncomplicated CT lung cancer screening (LDCT) Comparison: CT/SR - CT LUNG SCREENING - 10/15/24 10:[address]/REG/SD/SR - CT LUNG SCREENING - 10/12/23 10:23 EST Technique: Axial CT images of the chest using low-dose technique. Referring provider counseled the patient on shared decision-making for LDCT screening. Additional counseling was provided on smoking cessation. Effective radiation dose total: DLP 39.3 mGycm, CTDIvol 1.1 mGy. Findings: Lung: Mild emphysema. Stable 2 mm subpleural nodule of the right upper lobe series 5, image 54. Stable 5 mm semi-solid nodule of the right upper lobe image 27. Coronary artery calcifications: Moderate Limited upper abdomen: Unremarkable Other: Retroesophageal right subclavian artery. IMPRESSION: LungRADS 2 - Benign Appearance: Continue annual screening with low dose Chest CT in 12 months. ##L2## This document has been electronically signed by: Danish iVllar MD on 10/22/2025 12:49:34
--- OUTSIDE RECORDS SUMMARY | 2025-10-22 11:06 | XMS_ITS | Data Portability ---
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 Medical [...] Updated DateTime 07/05/2024 162.56 cm 29.2 kg/m2 84882.7 g Ayde Figueredo [place] - [facility] 07/05/2024 12:14:27 Social History None recorded. Functional Status None recorded. Mental Status None recorded. Family History Nothing Reported. Medical History Condition Response Hyperlipidemia Y Hypertension Y Gynecological HistoryNo gynecological history recorded. Obstetrics History GPAL:G 0 P 0 0 0 0 Past Encounters Encounter ID Performer Location Encounter Start Date Encounter Closed Date Diagnosis/Indication Diagnosis SNOMED-CT Code Diagnosis ICD10 Code Diagnosis IMO Codes Diagnosis Note [id number] KENNEDY HEATH MD [facility] [address] [address] 07/05/2024 11:27:13 07/16/2024 07:34:21 Benign neoplasm of parotid gland 36365728 D11.0 68-year-ol d female, smoker, with bilateral parotid masses. 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 Her most recent imaging study was at [place] in March. I have the report but [...] Owen Member ID Guarantor Name 07/16/2024 1 [facility] [id number] Sarah Rodriges [id number] Sarah Rodriges Notes Date Note Type Note Provider Name and Address Organization Details Recorded Time 07/05/2024 text/html ROS as noted in the HPI 68-year-old female presents today for evaluation of parotid tumors. She has had them for years. They are not particularly bothersome. She has had both biopsied in the past and they have been positive for Warthin's tumors. She denies any pain. She denies any infection. Her most recent imaging study was at [place] in March. I have the report but not the images. Among other incidental findings was increased size of multiple relatively homogenous bilateral parotid masses compatible with Warthin's tumor. The dominant mass in the right parotid tail measures 3.2 x 2.1 x 4.4 cm in the dominant left superficial parotid mass measures 2.5 x 1.8 cm KENNEDY HEATH MD [address] [place] [address], [phone], [facility] - [facility] 07/16/2024 05:48:55 OBGyn Episode No OBEpisode recorded.
== END 2025-10-22 09:56 | disposition home or self-care (01) ==
LOC: HO.CT 09:55
PROVIDERS: PCP Internal Medicine; Visit Provider Physician Assistant Medical
DX: F17.210 Nicotine dependence, cigarettes, uncomplicated (principal); Z12.2 Encounter for screening for malignant neoplasm of respiratory organs
CPT/HCPCS: 71271

== ENCOUNTER → 2025-10-22 09:57 | Outpatient (BNV) | payer MEDICARE, SELFPAY | PROVIDERS: PCP Internal Medicine; Visit Provider Nuclear Medicine | DX: Z12.2 Encounter for screening for malignant neoplasm of respiratory organs (principal); Z87.891 Personal history of nicotine dependence | CPT/HCPCS: 71271 ==